=== PATIENT | female | born 1975 | race Caucasian/White ===

== ENCOUNTER 2016-11-23 15:00 | Emergency (ER) | payer MEDICAID, OTHER ==
--- NOTE | 2016-11-23 15:27 | ER Document Report ---
ED Medical Screen (RME) - General Chief Complaint: Toothache Stated Complaint: POSSIBLE TOOTH ABSCESS Mode of Arrival: Ambulatory Information source: Patient Notes: Patient presents with facial swelling swelling under her chin started on Thursday. Reports dental pain. Does not open her mouth all the way. Reports throat sore with swallowing. Only able to drink broth for dinner. I have greeted and performed a rapid initial assessment of this patient. A comprehensive ED assessment and evaluation of the patient, analysis of test results and completion of the medical decision making process will be conducted by additional ED providers. TRAVEL OUTSIDE OF THE [place] IN LAST 30 DAYS: No - Related Data Allergies/Adverse Reactions: methyldopa [From Aldomet] Allergy (Mild, Verified 11/23/16 15:23) egg [Egg] Allergy (Verified 11/23/16 15:23) tramadol HCl [From Ultram] Allergy (Verified 11/23/16 15:23) Past Medical History - Social History Chew tobacco use (# tins/day): No Frequency of alcohol use: None Drug Abuse: None - Past Medical History Cardiac Medical History: Reports: Hx Hypertension - not on medication Endocrine Medical History: Reports: Hx Diabetes Mellitus Type 2 Renal/ Medical History: Denies: Hx Peritoneal Dialysis Psychiatric Medical History: Reports: Hx Depression - intermittent Past Surgical History: Reports: Hx Section, Hx Cholecystectomy - Immunizations Hx Diphtheria, Pertussis, Tetanus Vaccination: Yes Physical Exam - Vital signs Vitals: Temp Pulse Resp BP Pulse Ox 98.1 F 94 20 154/98 H 99 11/23/16 15:17 11/23/16 15:17 11/23/16 15:17 11/23/16 15:17 11/23/16 15:17 Course - Vital Signs Vital signs: Temp Pulse Resp BP Pulse Ox 98.1 F 94 20 154/98 H 99 11/23/16 15:17 11/23/16 15:17 11/23/16 15:17 11/23/16 15:17 11/23/16 15:17
[2016-11-23 15:58] LABS: ABSOLUTE BASOPHILS # (AUTO) 0.1 10^3/uL (0.0-0.2); ABSOLUTE EOSINOPHILS # (AUTO) 0.1 10^3/uL (0.0-0.6); ABSOLUTE LYMPHOCYTES (AUTO) 2.1 10^3/uL (0.5-4.7); ABSOLUTE MONOCYTES (AUTO) 0.5 10^3/uL (0.1-1.4); ABSOLUTE NEUT (AUTO) 5.8 10^3/uL (1.7-8.2); BASOPHILS % (AUTO) 0.8 % (0-2); EOSINOPHILS % (AUTO) 1.7 % (0-6); HEMATOCRIT 43.5 % (36.0-47.0); HEMOGLOBIN 15.3 g/dL (12.0-15.5); HGB HCT DIFFERENCE 2.4; LYMPHOCYTES % (AUTO) 23.9 % (13-45); MEAN CORPUSCULAR HEMOGLOBIN 31.8 pg (27.0-33.4); MEAN CORPUSCULAR HGB CONC 35.1 g/dL (32.0-36.0); MEAN CORPUSCULAR VOLUME 91 fl (80-97); MONOCYTES % (AUTO) 6.1 % (3-13); RED CELL DISTRIBUTION WIDTH 14.1 % (11.5-14.0); SEGMENTED NEUTROPHILS % (AUTO) 67.5 % (42-78); WHITE BLOOD COUNT 8.6 10^3/uL (4.0-10.5)
[2016-11-23 16:21] LABS: ALANINE AMINOTRANSFERASE 28 U/L (9-52); ALBUMIN 3.8 g/dL (3.5-5.0); ALKALINE PHOSPHATASE 56 U/L (38-126); ANION GAP 12 (5-19); ASPARTATE AMINO TRANSFERASE 19 U/L (14-36); BILIRUBIN,DIRECT 0.4 mg/dL (0.0-0.4); BILIRUBIN,TOTAL 0.6 mg/dL (0.2-1.3); BLOOD UREA NITROGEN 9 mg/dL (7-20); CALCIUM 9.7 mg/dL (8.4-10.2); CARBON DIOXIDE 27 mmol/L (22-30); CHLORIDE 106 mmol/L (98-107); CREATININE RESULT 0.67 mg/dL (0.52-1.25); GLUCOSE 91 mg/dL (75-110); POTASSIUM 3.6 mmol/L (3.6-5.0); SODIUM 144.6 mmol/L (137-145); TOTAL PROTEIN 7.2 g/dL (6.3-8.2)
[2016-11-23] MEDS ORDERED: CLINDAMYCIN 600 MG/D5W RTU 50 ML IV ONE (17:21)
[2016-11-23] MEDS ORDERED: MORPHINE SULFATE 10 MG/ML INJ IV ONE (17:21)
[2016-11-23] MEDS ORDERED: DEXAMETHASONE SOD PHOS INJ 10 MG/1 ML VIAL IV ONE (17:21)
--- NOTE | 2016-11-23 17:52 | ER Document Report ---
ED Oral Problem - General Mode of Arrival: Ambulatory Information source: Patient TRAVEL OUTSIDE OF THE [place] IN LAST 30 DAYS: No - HPI Patient complains to provider of: Jaw pain, Swelling of jaw, Toothache Onset: Other - Pain for 3 days, swelling started today Quality of pain: Achy Pain Level: 5 Context: denies: Recent antibiotic use Associated symptoms: Jaw pain. denies: Chills, Fever, Tongue swelling, Unable to swallow Relieved by: Nothing Similar symptoms previously: No <IRWIN MORRIS - Last Filed: 11/23/16 19:27> <RUFINO LARSON - Last Filed: 11/23/16 22:32> <ESTELLA REZA - Last Filed: 11/24/16 00:14> - General Chief Complaint: Toothache Stated Complaint: POSSIBLE TOOTH ABSCESS Notes: Patient reports a three-day history of right lower jaw dental pain. Patient denies any fever. Patient states that she noticed swelling that started today and complains of a tight feeling to the right lower jaw area. (IRWIN MORRIS) - Related Data Allergies/Adverse Reactions: methyldopa [From Aldomet] Allergy (Mild, Verified 11/23/16 15:23) egg [Egg] Allergy (Verified 11/23/16 15:23) tramadol HCl [From Ultram] Allergy (Verified 11/23/16 15:23) Past Medical History - General Information source: Patient - Social History Smoking Status: Current Every Day Smoker Chew tobacco use (# tins/day): No Frequency of alcohol use: None Drug Abuse: None Occupation: none Lives with: Family Family History: Reviewed & Not Pertinent, Other - MOTHER - RA Patient has suicidal ideation: No Patient has homicidal ideation: No - Past Medical History Cardiac Medical History: Reports: Hx Hypertension Endocrine Medical History: Reports: Hx Diabetes Mellitus Type 2 Renal/ Medical History: Denies: Hx Peritoneal Dialysis Musculoskeltal Medical History: Reports Hx Arthritis - Rheumatoid arthritis Psychiatric Medical History: Reports: Hx Depression - intermittent Past Surgical History: Reports: Hx Section, Hx Cholecystectomy - Immunizations Hx Diphtheria, Pertussis, Tetanus Vaccination: Yes <IRWIN MORRIS - Last Filed: 11/23/16 19:27> Review of Systems - Review of Systems Constitutional: No symptoms reported. denies: Fever EENT: Other - Dental pain Cardiovascular: No symptoms reported. denies: Chest pain Respiratory: No symptoms reported. denies: Cough, Short of breath Gastrointestinal: No symptoms reported. denies: Nausea, Vomiting Genitourinary: No symptoms reported Female Genitourinary: No symptoms reported Musculoskeletal: No symptoms reported. denies: Back pain, Neck pain Skin: No symptoms reported Hematologic/Lymphatic: No symptoms reported Neurological/Psychological: No symptoms reported <IRWIN MORRIS - Last Filed: 11/23/16 19:27> Physical Exam - General General appearance: Appears well, Alert In distress: Mild - HEENT Head: Normocephalic Eyes: Normal Conjunctiva: Normal Nasal: Normal Mouth/Lips: Other - Patient with swelling to right lower jaw area under the mandible, swelling noted to right lateral aspect of lower lip, no sublingual or submental swelling. Lower lip swelling concerning for angioedema Mucous membranes: Normal Teeth diagram: 1 - Tenderness, decay Pharynx: Normal Neck: Lymphadenopathy - Right anterior cervical chain - Respiratory Respiratory status: No respiratory distress Chest status: Nontender Breath sounds: Normal. No: Rales, Rhonchi, Stridor, Wheezing Chest palpation: Normal - Cardiovascular Rhythm: Regular Heart sounds: S1 appreciated, S2 appreciated Murmur: No - Back Back: Normal, Nontender - Extremities General upper extremity: Normal inspection, Normal strength General lower extremity: Normal inspection, Normal strength - Neurological Neuro grossly intact: Yes Cognition: Normal Sharee Coma Scale Eye Opening: Spontaneous Sharee Coma Scale Verbal: Oriented Sharee Coma Scale Motor: Obeys Commands [place] Coma Scale Total: 15 - Psychological Associated symptoms: Normal affect, Normal mood - Skin Skin Temperature: Warm Skin Moisture: Dry Skin Color: Normal <IRWIN MORRIS - Last Filed: 11/23/16 19:27> <RUFINO LARSON - Last Filed: 11/23/16 22:32> <ESTELLA REZA - Last Filed: 11/24/16 00:14> - Vital signs Vitals: Temp Pulse Resp BP Pulse Ox 98.1 F 94 20 154/98 H 99 11/23/16 15:17 11/23/16 15:17 11/23/16 15:17 11/23/16 15:17 11/23/16 15:17 - HEENT Notes: Swelling to right lateral aspect of neck, tissue soft to touch, no concern for Doni angina at this time (IRWIN MORRIS) Course - Laboratory Result Diagrams: 11/23/16 15:40 11/23/16 15:40 <IRWIN MORRIS - Last Filed: 11/23/16 19:27> - Laboratory Result Diagrams: 11/23/16 15:40 11/23/16 15:40 - Diagnostic Test Radiology reviewed: Image reviewed, Reports reviewed - EKG Interpretation by Co EKG shows normal: Sinus rhythm, [place], Intervals, QRS Complexes, ST-T Waves Rate: Normal Rhythm: NSR When compared to previous EKG there are: No significant change <RUFINO LARSON - Last Filed: 11/23/16 22:32> - Laboratory Result Diagrams: 11/23/16 15:40 11/23/16 15:40 <ESTELLA REZA - Last Filed: 11/24/16 00:14> - Re-evaluation Re-evalutation: 11/23/16 17:[address] Reza regarding patient presentation agrees with plan of care thus far. 11/23/16 18:54 Dr. Reza to bedside for examination. Recommends observing patient for several hours, recommends treating her with clindamycin agrees with plan to give Benadryl as well as IV Pepcid and to have patient stop taking her lisinopril. Recommends having patient follow up with her primary doctor tomorrow to address her blood pressure medication 11/23/16 19:08 Patient advised that her swelling to her lower lip is concerning for angioedema and that she should not take her usual blood pressure any more. Patient should speak with her primary doctor tomorrow to discuss her blood pressure management as it is possible she is having an allergic reaction to her blood pressure medication. Patient also advised that we'll need to observe her for several hours to make sure she doesn't have any worsening swelling to the lip or lower neck area. Patient is agreeable with this plan of care this time. 11/23/16 19:27 Bedside report and handoff given to Rufino Larson [employer], patient states that 5 minutes ago she had a episode of some chest discomfort and some shortness of breath that resolved after she sat back up. Patient is uncertain if this may be due to the medication she is receiving or just that she is not feeling really well. Additional labs will be ordered. (IRWIN MORRIS) 11/23/16 21:44 Patient hemodynamically stable, in no distress, afebrile. Right lower jaw swelling improved during stay in the emergency department. No trismus and patient tolerating oral fluids without difficulty or vomiting. Patient received intravenous dose of dexamethasone and clindamycin. Patient was instructed to stop use of lisinopril until she follows up with her primary care provider. Patient appears stable for discharge and agrees with home care, follow-up with PCP and oral surgery, and strict ED return precautions. Findings and plan discussed with ED physician Dr. Reza who concurs with plan. (RUFINO LARSON) 11/24/16 00:13 I've seen and examined patient. On exam, the patient does have some swelling of the right side of the lip. Is no swelling of the tongue and there is no swelling of the floor the mouth. She does have a loose tooth on the right lower side which is tender. It's unclear whether the swelling in the tongue is related to the dental caries. She certainly has tenderness under the submental area. The rest of her neck is supple and the rest of the submandibular area is supple. I don't see any evidence of Doni exam Jay at this time. Patient was given IV clindamycin, IV Decadron and she's been tolerating fluids. She does have plans of following up with a dentist tomorrow. Additionally, we've asked her to stop the lisinopril giving the swelling of the lip. She could follow-up with her primary care doctor for different type of antihypertensive. ( ESTELLA REZA) - Vital Signs Vital signs: Temp Pulse Resp BP Pulse Ox 97.9 F 82 18 148/86 H 100 11/23/16 21:58 11/23/16 21:58 11/23/16 21:58 11/23/16 21:58 11/23/16 21:58 - Laboratory Laboratory results interpreted by me: 11/23/16 15:40 RDW 14.1 H Plt Count 127 L Discharge <IRWIN MORRIS - Last Filed: 11/23/16 19:27> <RUFINO LARSON - Last Filed: 11/23/16 22:32> <ESTELLA REZA - Last Filed: 11/24/16 00:14> - Discharge Clinical Impression: Dental infection Condition: Stable Disposition: HOME, SELF-CARE Instructions: Clindamycin ([facility]), Dental Infection or Abscess ([facility]), Angioedema ([facility]) Additional Instructions: FOLLOW-UP CARE: Stop taking your Lisinopril until you follow-up with your primary care provider tomorrow to discuss your anti-hypertensive regimen including Lisinopril. If you experience worsening or a significant change in your symptoms, notify the physician immediately or return to the Emergency Department at any time for re-evaluation. [facility] [address] [place], [place] Thursday mornings, by appointment [facility] [address] [place] [address] [facility] [place] [address] [facility] [address] [facility] ([facility]) [facility] [address] [email or web address] [address] [place] [address] Thursday- 8:00am to 5:00 pm Will see patients from other [facility]. Charges based on income and family size and accepts Medicare, Medicaid, and Insurances Will pull molars [facility] [id number] Hours of Operation 8:00 am - 4:30 pm weekdays The following dental offices accept Medicaid: [facility] Dr. Cowart Dr. Dee Dr. Craft Dr. Gomes Shamar Antonio Lutsavage, and Kevin oral surgery Dr. Rolle ([place]) Dr. Longoria ([place]) [facility] Drs. Harris and Zaid ([place]) Dr. Burnett ([place]) [facility] Dr. Powers ([place]) Drs. Pulido and (H. Rivera Colon) Medicaid Care Line Prescriptions: Clindamycin HCl 300 mg PO Q6H #28 capsule Hydrocodone/Acetaminophen [[place] 5-325 mg Tablet] 1 tab PO Q6H PRN #10 tablet PRN Reason: Naproxen 500 mg PO BIDP PRN #10 tablet PRN Reason: Forms: Elevated Blood Pressure Referrals: EAMON JOSEPH DDS [ACTIVE STAFF] - Follow up tomorrow [facility] [NO LOCAL MD] - Follow up tomorrow
[2016-11-23] MEDS ORDERED: FAMOTIDINE INJ/PF 20 MG/2 ML SDV IV ONE (18:53)
[2016-11-23] MEDS ORDERED: DIPHENHYDRAMINE HCL 50 MG/ML VIAL IV ONE (18:53)
[2016-11-23 19:31] LABS: ADD ON TESTING BLD IN LAB ACKNOWLEDGE
[2016-11-23 20:05] LABS: CREATINE KINASE 45 U/L (30-135)
[2016-11-23 20:19] LABS: CREATINE KINASE MB < 0.22 ng/mL (<4.55); TROPONIN I < 0.012 ng/mL
--- NOTE | 2016-11-23 21:23 | EKG REPORT ---
SEVERITY:- BORDERLINE ECG - SINUS RHYTHM LOW VOLTAGE IN FRONTAL LEADS BORDERLINE T ABNORMALITIES, ANTERIOR LEADS : Confirmed by: Dae Arambula MD 23-Nov-2016 21:22:41
[2016-11-23 22:00] VITALS: BP 148/86
== END 2016-11-23 21:58 | disposition home or self-care (01) ==
LOC: ER 15:00
DX: K04.7 Periapical abscess without sinus (principal); K02.9 Dental caries, unspecified; K08.89 Other specified disorders of teeth and supporting structures; R59.0 Localized enlarged lymph nodes; R22.0 Localized swelling, mass and lump, head; R09.89 Other specified symptoms and signs involving the circulatory and respiratory systems; R06.02 Shortness of breath; I10 Essential (primary) hypertension; E11.9 Type 2 diabetes mellitus without complications; F17.200 Nicotine dependence, unspecified, uncomplicated; Z88.8 Allergy status to other drugs, medicaments and biological substances; Z88.5 Allergy status to narcotic agent; Z91.012 Allergy to eggs; Z79.899 Other long term (current) drug therapy
CPT/HCPCS: 93005; 99284; 96375; 96365; 36415; 87040; 82553; 82550; 84703; 85025; 80053; 84484; 71020; 70491; 93010; J1200; J2270; S0028; J1100

== ENCOUNTER 2016-12-15 14:24 | Emergency (ER) | payer SELFPAY ==
--- NOTE | 2016-12-15 15:45 | ER Document Report ---
ED Medical Screen (RME) - General Stated Complaint: ABDOMINAL PAIN,NAUSEA,VOMITING Notes: This 41-year-old female patient of them are from a 10 day history of abdominal pain. Her last bowel movement was one week ago. She has had some leakage of stool but no good bowel movement. She has not taken her blood pressure medication due to nausea. I have greeted and performed a rapid initial assessment of this patient. A comprehensive ED assessment and evaluation of the patient, analysis of test results and completion of the medical decision making process will be conducted by additional ED providers. TRAVEL OUTSIDE OF THE [place] IN LAST 30 DAYS: No - Related Data Allergies/Adverse Reactions: methyldopa [From Aldomet] Allergy (Mild, Verified 11/23/16 15:23) egg [Egg] Allergy (Verified 11/23/16 15:23) tramadol HCl [From Ultram] Allergy (Verified 11/23/16 15:23) Past Medical History - Past Medical History Cardiac Medical History: Reports: Hx Hypertension Endocrine Medical History: Reports: Hx Diabetes Mellitus Type 2 Renal/ Medical History: Denies: Hx Peritoneal Dialysis Musculoskeltal Medical History: Reports Hx Arthritis - Rheumatoid arthritis Psychiatric Medical History: Reports: Hx Depression - intermittent Past Surgical History: Reports: Hx Section, Hx Cholecystectomy - Immunizations Hx Diphtheria, Pertussis, Tetanus Vaccination: Yes Physical Exam - Vital signs Vitals: Temp Pulse Resp BP Pulse Ox 98.8 F 108 H 20 128/75 H 97 12/15/16 15:06 12/15/16 15:06 12/15/16 15:06 12/15/16 15:06 12/15/16 15:06 Course - Vital Signs Vital signs: Temp Pulse Resp BP Pulse Ox 98.8 F 108 H 20 128/75 H 97 12/15/16 15:06 12/15/16 15:06 12/15/16 15:06 12/15/16 15:06 12/15/16 15:06
[2016-12-15 16:36] LABS: ABSOLUTE BASOPHILS # (AUTO) 0.1 10^3/uL (0.0-0.2); ABSOLUTE EOSINOPHILS # (AUTO) 0.1 10^3/uL (0.0-0.6); ABSOLUTE LYMPHOCYTES (AUTO) 1.6 10^3/uL (0.5-4.7); ABSOLUTE MONOCYTES (AUTO) 1.1 10^3/uL (0.1-1.4); ABSOLUTE NEUT (AUTO) 11.7 10^3/uL (1.7-8.2); BASOPHILS % (AUTO) 0.4 % (0-2); EOSINOPHILS % (AUTO) 0.7 % (0-6); HEMATOCRIT 45.6 % (36.0-47.0); HEMOGLOBIN 15.9 g/dL (12.0-15.5); HGB HCT DIFFERENCE 2.1; LYMPHOCYTES % (AUTO) 11.2 % (13-45); MEAN CORPUSCULAR HEMOGLOBIN 31.5 pg (27.0-33.4); MEAN CORPUSCULAR HGB CONC 34.9 g/dL (32.0-36.0); MEAN CORPUSCULAR VOLUME 90 fl (80-97); MONOCYTES % (AUTO) 7.7 % (3-13); RED BLOOD COUNT 5.05 10^6/uL (3.72-5.28); RED CELL DISTRIBUTION WIDTH 14.6 % (11.5-14.0); WHITE BLOOD COUNT 14.6 10^3/uL (4.0-10.5)
[2016-12-15 16:52] LABS: APPEARANCE,URINE CLEAR; BILIRUBIN,URINE NEGATIVE (NEGATIVE); GLUCOSE, URINE NEGATIVE (NEGATIVE); KETONES,URINE TRACE mg/dL (NEGATIVE); LEUKOCYTE ESTERASE,URINE NEGATIVE (NEGATIVE); NITRITE,URINE NEGATIVE (NEGATIVE); PROTEIN,URINE NEGATIVE (NEGATIVE); URINE SPECIFIC GRAVITY 1.017; UROBILINOGEN,URINE NEGATIVE mg/dL (<2.0)
[2016-12-15 16:59] LABS: ALANINE AMINOTRANSFERASE 26 U/L (9-52); ALBUMIN 3.6 g/dL (3.5-5.0); ALKALINE PHOSPHATASE 68 U/L (38-126); ANION GAP 15 (5-19); ASPARTATE AMINO TRANSFERASE 14 U/L (14-36); BILIRUBIN,DIRECT 0.2 mg/dL (0.0-0.4); BILIRUBIN,TOTAL 0.7 mg/dL (0.2-1.3); BLOOD UREA NITROGEN 7 mg/dL (7-20); CALCIUM 8.9 mg/dL (8.4-10.2); CARBON DIOXIDE 22 mmol/L (22-30); CHLORIDE 102 mmol/L (98-107); CREATININE RESULT 0.73 mg/dL (0.52-1.25); GLUCOSE 97 mg/dL (75-110); POTASSIUM 3.4 mmol/L (3.6-5.0); TOTAL PROTEIN 6.8 g/dL (6.3-8.2)
[2016-12-15] MEDS ORDERED: NORMAL SALINE 1000 ML 1,000 ML IV ONE (19:13)
[2016-12-15] MEDS ORDERED: MORPHINE SULFATE 10 MG/ML INJ IV ONE (19:13)
[2016-12-15] MEDS ORDERED: ONDANSETRON HCL INJ/PF 4 MG/2 ML SDV IV ONE (19:14)
--- NOTE | 2016-12-15 19:15 | ER Document Report ---
ED GI/ - General Chief Complaint: Abdominal Pain Stated Complaint: ABDOMINAL PAIN,NAUSEA,VOMITING Notes: The patient is a 41-year-old female, past medical history , cholecystectomy, presents with 10 days of worsening abdominal pain, worsening today. In addition, she is feeling nauseous. She has not had a full bowel movement for the past week. She has a small amount of stool when she strains. She denies urinary symptoms, flank pain, fevers, chest pain, shortness of breath , back pain, vaginal discharge or headache. TRAVEL OUTSIDE OF THE [place] IN LAST 30 DAYS: No - Related Data Allergies/Adverse Reactions: methyldopa [From Aldomet] Allergy (Mild, Verified 11/23/16 15:23) egg [Egg] Allergy (Verified 11/23/16 15:23) tramadol HCl [From Ultram] Allergy (Verified 11/23/16 15:23) Past Medical History - General Information source: Patient - Social History Smoking Status: Unknown if Ever Smoked Family History: Reviewed & Not Pertinent, Other - MOTHER - RA Patient has suicidal ideation: No Patient has homicidal ideation: No - Past Medical History Cardiac Medical History: Reports: Hx Hypertension Endocrine Medical History: Reports: Hx Diabetes Mellitus Type 2 Renal/ Medical History: Denies: Hx Peritoneal Dialysis Musculoskeltal Medical History: Reports Hx Arthritis - Rheumatoid arthritis Psychiatric Medical History: Reports: Hx Depression - intermittent Past Surgical History: Reports: Hx Section, Hx Cholecystectomy - Immunizations Hx Diphtheria, Pertussis, Tetanus Vaccination: Yes Review of Systems - Review of Systems Notes: REVIEW OF SYSTEMS: CONSTITUTIONAL: -fevers, -chills EENT: -eye pain, -difficulty swallowing, -nasal congestion CARDIOVASCULAR:-chest pain, -syncope. RESPIRATORY: -cough, -SOB GASTROINTESTINAL: +abdominal pain, +nausea, -vomiting, -diarrhea, +constipation GENITOURINARY: -dysuria, -hematuria MUSCULOSKELETAL: -back pain, -neck pain SKIN: -rash or skin lesions. HEMATOLOGIC: -easy bruising or bleeding. LYMPHATIC: -swollen, enlarged glands. NEUROLOGICAL: -altered mental status or loss of consciousness, -headache, - neurologic symptoms PSYCHIATRIC: -anxiety, -depression. ALL OTHER SYSTEMS REVIEWED AND NEGATIVE. Physical Exam - Vital signs Vitals: Temp Pulse Resp BP Pulse Ox 98.8 F 108 H 20 128/75 H 97 12/15/16 15:06 12/15/16 15:06 12/15/16 15:06 12/15/16 15:06 12/15/16 15:06 - Notes Notes: PHYSICAL EXAMINATION: GENERAL: Well-appearing, well-nourished and in mild acute distress. HEAD: Atraumatic, normocephalic. EYES: Pupils equal round and reactive to light, extraocular movements intact, sclera anicteric, conjunctiva are normal. ENT: nares patent, oropharynx clear without exudates. Moist mucous membranes. NECK: Normal range of motion, supple without lymphadenopathy LUNGS: Breath sounds clear to auscultation bilaterally and equal. No wheezes rales or rhonchi. HEART: Tachycardia ABDOMEN: Moderate tenderness diffusely, high-pitched bowel sounds EXTREMITIES: Normal range of motion, no pitting or edema. No cyanosis. NEUROLOGICAL: Cranial nerves grossly intact. Normal speech, normal gait. Normal sensory, motor, and reflex exams. PSYCH: Normal mood, normal affect. SKIN: Warm, Dry, normal turgor, no rashes or lesions noted. Course - Re-evaluation Re-evalutation: Concern for bowel obstruction from obstruction series ordered in triage. CT abdomen and pelvis shows colitis or inflammatory bowel disease. Patient is feeling much better and is no longer nauseous. Will treat for colitis with Cipro and Flagyl due to leukocytosis and have her follow-up with the GI doctor for further evaluation and treatment. Given strict return precautions and she understands. - Vital Signs Vital signs: Temp Pulse Resp BP Pulse Ox 98.8 F 108 H 20 128/75 H 97 12/15/16 15:06 12/15/16 15:06 12/15/16 15:06 12/15/16 15:06 12/15/16 15:06 - Laboratory Result Diagrams: 12/15/16 16:05 12/15/16 16:05 Laboratory results interpreted by me: 12/15/16 12/15/16 12/15/16 16:05 16:05 16:05 WBC 14.6 H Hgb 15.9 H RDW 14.6 H Seg Neutrophils % 80.0 H Lymphocytes % 11.2 L Absolute Neutrophils 11.7 H Potassium 3.4 L Urine Ketones TRACE H - Diagnostic Test Radiology reviewed: Image reviewed, Reports reviewed Radiology results interpreted by me: KUB: possible obstruction CT A/P: Discharge - Discharge Clinical Impression: Colitis Condition: Stable Disposition: HOME, SELF-CARE Additional Instructions: Your CAT scan shows evidence of a colon infection or inflammatory bowel disease. Take the full course antibiotics as prescribed. You must follow-up with the GI doctor for further evaluation and treatment. ABDOMINAL PAIN: There are many causes of abdominal pain. Pain can mean a serious problem requiring surgery (such as appendicitis). It can also be an innocent problem that goes away on its own (such as a viral infection). Often, time must pass to determine the cause of pain. The physician does not feel that hospitalization is necessary, at present. Things may change within the next 24 hours. Call the doctor or come back for re- examination if any problems occur, such as: (1) Pain that becomes more severe, steady, or becomes concentrated in one specific area. Also, pain that is more severe with movement or coughing. (2) Vomiting that persists or becomes more frequent. (3) Blood in the vomitus, urine, or bowel movements. Blood in the stool may have a tarry or black appearance. (4) Shaking chills or fever greater than 100 degrees F. (5) The abdomen becomes more distended or swollen. (6) Bowel movements cease. (7) Failure to improve as expected. COLITIS, NONSPECIFIC: Colitis is an inflammatory disease of the large intestine which affects the lining of the bowel. The cause is uncertain, though it is often caused by an infection. In some cases, the symptoms resolve and can return again in the future. Colitis is characterized by abdominal pain, often nausea and vomiting, and either diarrhea or difficulty with bowel movements. Sometimes blood will be present in the bowel movements. Fever is often present as well. Milder cases of colitis can be managed as an outpatient with medications for nausea and vomiting and pain, oral fluid therapy, and perhaps antibiotics, if a bacterial origin is suspected. Antidiarrhea medicine should usually be avoided in colitis. If you have increasing abdominal pain, repeated vomiting, fever, rectal bleeding, or worsening diarrhea, you should return for re-evaluation. PAIN MEDICATION INJECTION: You have received an injection of a pain medication. You should experience significant pain relief within 45 minutes. This drug is a narcotic - - it will impair your judgement, slow your reaction time and make you sleepy ( as well as relieve your pain). Narcotics also can cause nausea. You should not drive, work with machinery, or perform any task requiring mental alertness until all effects of the medication are gone -- six to eight hours. Do not take any alcohol, or sedatives, and do not take any other medication without checking with your physician. ANTINAUSEA MEDICATION: You have been given a medication to suppress nausea and vomiting. This type of medication can be given as a shot, pill, or suppository. It will usually last for many hours. Pills and shots usually last six to eight hours, suppositories last about 12 hours. For the typical illness, only one or two doses of the medication may be necessary. Mild lightheadedness may occur. This type of medicine can cause drowsiness. Do not drive or operate dangerous machinery while under its influence. Do not mix with alcohol. See your doctor at once if you have muscle spasms or tightness, or uncontrollable motions (particularly of the neck, mouth, or jaw). Persistent vomiting or severe lightheadedness should also be evaluated by the physician. ANTIBIOTIC THERAPY: You have been given an antibiotic prescription. It's important that you take all the medication, unless instructed otherwise by your physician. Failure to complete the entire course can result in relapse of your condition. Common side effects of antibiotics include nausea, intestinal cramping, or diarrhea. Women may develop vaginal yeast infections, and babies can get yeast (thrush) in the mouth following the use of antibiotics. Contact your physician if you develop significant side effects from this medication. Allergy to this antibiotic can result in hives, wheezing, faintness, or itching. If symptoms of allergy occur, stop the medication and call the doctor. CIPROFLOXACIN: You have been given an antibacterial agent, ciprofloxacin (Cipro). This medicine is not related to the penicillins, sulfas, cephalosporins, or tetracyclines. It is often given to patients who are allergic to these drugs. It has been chosen for you either because other drugs are not appropriate, or because of the nature of your problem. Cipro should not be taken with antacids, as these can decrease its effectiveness. It can be taken without regard to meals. CIPRO SHOULD NOT BE TAKEN BY CHILDREN, NURSING WOMEN, OR WOMEN. Although Cipro is usually well-tolerated, common side effects can include nausea and diarrhea. Contact your doctor if you experience any unusual symptoms while on this medication, such as joint pain or swelling, shortness of breath, wheezing, faintness, or hives. METRONIDAZOLE: Metronidazole (Flagyl) has been prescribed. This medication is used to kill a type of bacteria called anaerobes, and protozoan parasites such as trichomonas and Giardia. Flagyl often causes a metallic taste in the mouth and mild nausea. Do not use alcohol in any form with Flagyl (including alcohol in medication elixirs). Flagyl interacts with alcohol to cause flushing, palpitations, headache, stomach cramps, and vomiting. Do not use Flagyl if you are taking Antabuse (disulfiram). Call the doctor at once if you develop rash, shortness of breath, itching, or lightheadedness. FOLLOW-UP CARE: If you have been referred to a physician for follow-up care, call the physician s office for an appointment as you were instructed or within the next two days. If you experience worsening or a significant change in your symptoms, notify the physician immediately or return to the Emergency Department at any time for re-evaluation. Prescriptions: Ciprofloxacin HCl [Cipro 500 mg Tablet] 500 mg PO BID #20 tablet Metronidazole [Flagyl 500 mg Tablet] 500 mg PO Q8H #21 tablet Referrals: PRICILLA TOMPKINS MD [ACTIVE STAFF] - Follow up as needed
[2016-12-15] MEDS ORDERED: METRONIDAZOLE 500 MG TABLET PO ONE (21:04)
[2016-12-15] MEDS ORDERED: CIPROFLOXACIN HCL 500 MG TABLET PO ONE (21:04)
[2016-12-16 02:42] VITALS: BP 112/62
== END 2016-12-15 22:00 | disposition home or self-care (01) ==
LOC: ER 14:24
DX: K52.9 Noninfective gastroenteritis and colitis, unspecified (principal); R11.0 Nausea; R00.0 Tachycardia, unspecified; K59.00 Constipation, unspecified; I10 Essential (primary) hypertension; E11.9 Type 2 diabetes mellitus without complications; Z90.49 Acquired absence of other specified parts of digestive tract; Z91.012 Allergy to eggs
CPT/HCPCS: 99284; 96374; 96375; 36415; 85025; 80053; 81001; 74022; 74177; J2270; J2405; J7030

== ENCOUNTER 2017-01-05 17:28 | Inpatient (IN) | payer MEDICAID, OTHER ==
--- NOTE | 2017-01-05 18:13 | ER Document Report ---
ED Medical Screen (RME) - General Chief Complaint: Abdominal Pain Stated Complaint: POSSIBLE BOWEL OBSTRUCTION Time Seen by Provider: 01/05/17 18:12 TRAVEL OUTSIDE OF THE [place] IN LAST 30 DAYS: No - HPI Notes: 01/05/17 18:13 Abdominal pain nausea vomiting. Patient was recently seen diagnosed with colitis versus inflammatory bowel was discharged home on antibiotics felt better stop antibiotics pain returned and she restart her antibiotics 2 days ago. - Related Data Allergies/Adverse Reactions: methyldopa [From Aldomet] Allergy (Mild, Verified 01/05/17 17:46) egg [Egg] Allergy (Verified 01/05/17 17:46) tramadol HCl [From Ultram] Allergy (Verified 01/05/17 17:46) Past Medical History - Past Medical History Cardiac Medical History: Reports: Hx Hypertension Endocrine Medical History: Reports: Hx Diabetes Mellitus Type 2 Renal/ Medical History: Denies: Hx Peritoneal Dialysis Musculoskeltal Medical History: Reports Hx Arthritis - Rheumatoid arthritis Psychiatric Medical History: Reports: Hx Depression - intermittent Past Surgical History: Reports: Hx Section, Hx Cholecystectomy - Immunizations Hx Diphtheria, Pertussis, Tetanus Vaccination: Yes Review of Systems - Review of Systems Gastrointestinal: Abdominal pain Physical Exam - Vital signs Vitals: Temp Pulse Resp BP Pulse Ox 99.1 F 114 H 22 H 134/85 H 96 01/05/17 17:48 01/05/17 17:48 01/05/17 17:48 01/05/17 17:48 01/05/17 17:48 - Respiratory Respiratory status: No respiratory distress Chest status: Nontender Breath sounds: Normal Chest palpation: Normal Course - Re-evaluation Re-evalutation: 01/05/17 18:13 I have greeted and performed a rapid initial assessment of this patient. A comprehensive ED assessment and evaluation of the patient, analysis of test results and completion of the medical decision making process will be conducted by additional ED providers. - Vital Signs Vital signs: Temp Pulse Resp BP Pulse Ox 99.1 F 114 H 22 H 134/85 H 96 01/05/17 17:48 01/05/17 17:48 01/05/17 17:48 01/05/17 17:48 01/05/17 17:48
[2017-01-05 18:36] LABS: ABSOLUTE BASOPHILS # (AUTO) 0.1 10^3/uL (0.0-0.2); ABSOLUTE EOSINOPHILS # (AUTO) 0.1 10^3/uL (0.0-0.6); ABSOLUTE LYMPHOCYTES (AUTO) 0.9 10^3/uL (0.5-4.7); ABSOLUTE MONOCYTES (AUTO) 0.8 10^3/uL (0.1-1.4); BASOPHILS % (AUTO) 0.5 % (0-2); EOSINOPHILS % (AUTO) 0.8 % (0-6); HEMATOCRIT 42.4 % (36.0-47.0); HEMOGLOBIN 14.6 g/dL (12.0-15.5); HGB HCT DIFFERENCE 1.4; LYMPHOCYTES % (AUTO) 8.2 % (13-45); MEAN CORPUSCULAR HEMOGLOBIN 31.1 pg (27.0-33.4); MEAN CORPUSCULAR HGB CONC 34.3 g/dL (32.0-36.0); MEAN CORPUSCULAR VOLUME 91 fl (80-97); MONOCYTES % (AUTO) 7.7 % (3-13); RED BLOOD COUNT 4.68 10^6/uL (3.72-5.28); RED CELL DISTRIBUTION WIDTH 14.3 % (11.5-14.0); SEGMENTED NEUTROPHILS % (AUTO) 82.8 % (42-78); WHITE BLOOD COUNT 10.9 10^3/uL (4.0-10.5)
[2017-01-05 18:55] LABS: ALANINE AMINOTRANSFERASE 14 U/L (9-52); ALBUMIN 3.3 g/dL (3.5-5.0); ALKALINE PHOSPHATASE 48 U/L (38-126); ANION GAP 9 (5-19); ASPARTATE AMINO TRANSFERASE 14 U/L (14-36); BILIRUBIN,DIRECT 0.5 mg/dL (0.0-0.4); BILIRUBIN,TOTAL 0.8 mg/dL (0.2-1.3); BLOOD UREA NITROGEN 11 mg/dL (7-20); CALCIUM 8.7 mg/dL (8.4-10.2); CARBON DIOXIDE 23 mmol/L (22-30); CHLORIDE 106 mmol/L (98-107); CREATININE RESULT 0.71 mg/dL (0.52-1.25); GLUCOSE 99 mg/dL (75-110); LIPASE 55.7 U/L (23-300); POTASSIUM 3.8 mmol/L (3.6-5.0); TOTAL PROTEIN 6.4 g/dL (6.3-8.2)
[2017-01-05 19:10] LABS: APPEARANCE,URINE CLEAR; BILIRUBIN,URINE NEGATIVE (NEGATIVE); GLUCOSE, URINE NEGATIVE (NEGATIVE); KETONES,URINE NEGATIVE (NEGATIVE); LEUKOCYTE ESTERASE,URINE NEGATIVE (NEGATIVE); NITRITE,URINE NEGATIVE (NEGATIVE); PROTEIN,URINE NEGATIVE (NEGATIVE); URINE SPECIFIC GRAVITY 1.006; UROBILINOGEN,URINE NEGATIVE mg/dL (<2.0)
[2017-01-05] MEDS ORDERED: MORPHINE SULFATE 10 MG/ML INJ IV PRN (19:18)
[2017-01-05] MEDS ORDERED: ONDANSETRON HCL INJ/PF 4 MG/2 ML SDV IV ONE (19:18)
[2017-01-05] MEDS ORDERED: NORMAL SALINE 1000 ML 1,000 ML IV ONE (19:21)
--- NOTE | 2017-01-05 19:21 | ER Document Report ---
ED General - General Chief Complaint: Abdominal Pain Stated Complaint: POSSIBLE BOWEL OBSTRUCTION Time Seen by Provider: 01/05/17 18:12 Notes: Patient is a 41-year-old female with a prior surgical history of cholecystectomy and , who presents with 4 days of progressively worsening diffuse abdominal pain with associated nausea, vomiting, and decreased stool output. She was seen 3 weeks ago for the same presentation at that time diagnosed with an acute colitis based on imaging and clinical history. States that her symptoms got that initially after taking antibiotics and she did self discontinue them prior to completion of the course. At this time she describes a diffuse, cramping, severe abdominal pain. Nothing improves or worsens the pain. She states she is currently oral intake secondary to pain and nausea. She has not seen a primary care doctor regarding today's concerns. She denies any chest pain or shortness of breath. No fever but states she feels chilled TRAVEL OUTSIDE OF THE [place] IN LAST 30 DAYS: No - Related Data Allergies/Adverse Reactions: methyldopa [From Aldomet] Allergy (Mild, Verified 01/05/17 17:46) egg [Egg] Allergy (Verified 01/05/17 17:46) tramadol HCl [From Ultram] Allergy (Verified 01/05/17 17:46) Past Medical History - General Information source: Patient - Social History Smoking Status: Never Smoker Frequency of alcohol use: None Drug Abuse: None Lives with: Spouse/Significant other Family History: Reviewed & Not Pertinent, Other - MOTHER - RA Patient has suicidal ideation: No Patient has homicidal ideation: No - Past Medical History Cardiac Medical History: Reports: Hx Hypertension Endocrine Medical History: Reports: Hx Diabetes Mellitus Type 2 Renal/ Medical History: Denies: Hx Peritoneal Dialysis Musculoskeltal Medical History: Reports Hx Arthritis - Rheumatoid arthritis Psychiatric Medical History: Reports: Hx Depression - intermittent Past Surgical History: Reports: Hx Section, Hx Cholecystectomy - Immunizations Hx Diphtheria, Pertussis, Tetanus Vaccination: Yes Review of Systems - Review of Systems Notes: Constitutional: Negative for fever. HENT: Negative for sore throat. Eyes: Negative for visual changes. Cardiovascular: Negative for chest pain. Respiratory: Negative for shortness of breath. Gastrointestinal: Positive for abdominal pain and vomiting Genitourinary: Negative for dysuria. Musculoskeletal: Negative for back pain. Skin: Negative for rash. Neurological: Negative for headaches, weakness or numbness. 10 point ROS negative except as marked above and in HPI. Physical Exam - Vital signs Vitals: Temp Pulse Resp BP Pulse Ox 99.1 F 114 H 22 H 134/85 H 96 01/05/17 17:48 01/05/17 17:48 01/05/17 17:48 01/05/17 17:48 01/05/17 17:48 Interpretation: Tachycardic, Tachypneic Notes: PHYSICAL EXAMINATION: GENERAL: Appears uncomfortable but in no acute distress HEAD: Atraumatic, normocephalic. EYES: Pupils equal round and reactive to light, extraocular movements intact, sclera anicteric, conjunctiva are normal. ENT: nares patent, oropharynx clear without exudates. Moderately dry mucous membranes. NECK: Normal range of motion, supple without lymphadenopathy LUNGS: Breath sounds clear to auscultation bilaterally and equal. No wheezes rales or rhonchi. HEART: Regular tachycardia without murmurs ABDOMEN: Soft, focal tenderness in the suprapubic and left lower quadrant with voluntary guarding. Otherwise has very mild diffuse abdominal tenderness. Bowel sounds are present. No rigidity. EXTREMITIES: Normal range of motion, no pitting or edema. No cyanosis. NEUROLOGICAL: No focal neurological deficits. Moves all extremities spontaneously and on command. PSYCH: Anxious. SKIN: Warm, Dry, normal turgor, no rashes or lesions noted. Course - Re-evaluation Re-evalutation: 01/05/17 19:20 Patient presents with focal left lower quadrant and suprapubic abdominal tenderness on exam although complains of diffuse abdominal tenderness by history. She does appear to be in some degree of significant discomfort. She is also noted to be tachycardic at time of arrival and is complaining of chills and rigors. She is a CT scan done proximal and one month ago for similar presentation and had an acute colitis at that time. States that her symptoms initially a better on oral antibiotics but now that they have recurred there worse than before. She is also complaining of inability to tolerate oral intake and decreased flatus and bowel movements concerning for possible associated ileus or bowel obstruction. Will proceed with IV fluids, pain control, CT scan of the abdomen and pelvis. 01/05/17 22:53 CT shows findings consistent with ongoing severe colitis vs inflammatory bowel disease. She continues to be mildly tachycardic and uncomfortable much improved with morphine. She is not tolerating some clear fluids. Given the ongoing nature of her symptoms, will appearance time of presentation, and the degree of inflammation on CT Will admit to the hospital on IV antibiotics. I discussed with Dr. Patrick who has agreed to admit the patient. - Vital Signs Vital signs: Temp Pulse Resp BP Pulse Ox 99.9 F 111 H 16 122/65 96 01/05/17 21:34 01/05/17 21:34 01/05/17 21:34 01/05/17 21:34 01/05/17 21:34 - Laboratory Result Diagrams: 01/05/17 18:15 01/05/17 18:15 Laboratory results interpreted by me: 01/05/17 01/05/17 18:15 18:15 WBC 10.9 H RDW 14.3 H Plt Count 126 L Seg Neutrophils % 82.8 H Lymphocytes % 8.2 L Absolute Neutrophils 9.0 H Direct Bilirubin 0.5 H Albumin 3.3 L - Diagnostic Test Radiology reviewed: Reports reviewed Discharge - Discharge Clinical Impression: Colitis Vomiting Qualifiers: Vomiting type: unspecified Vomiting Intractability: non-intractable Nausea presence: with nausea Qualified Code(s): R11.2 - Nausea with vomiting, unspecified Abdominal pain Qualifiers: Abdominal location: lower abdomen, unspecified Qualified Code(s): R10.30 - Lower abdominal pain, unspecified Condition: Fair Disposition: ADMITTED INPATIENT Admitting Provider: Jarrod Patrick Unit Admitted: [facility]
[2017-01-05] MEDS ORDERED: CEFTRIAXONE 1 GM/D5W RTU 50 ML IV ONE (22:46)
[2017-01-05] MEDS ORDERED: METRONIDAZOLE 500 MG/NS RTU 100 ML IV ONE (22:46)
[2017-01-05] MEDS ORDERED: DEXTROSE 40% GEL 15 GM TUBE PO PRN ×2 (23:33)
[2017-01-05] MEDS ORDERED: INSULIN LISPRO 100 UNIT/ML 3 ML VIAL SUBCUT PRN (23:33)
[2017-01-05] MEDS ORDERED: DEXTROSE 50%-WATER 25 GM/50 ML DISP.SYRIN IV PRN ×2 (23:33)
[2017-01-05] MEDS ORDERED: GLUCAGON,HUMAN RECOMB 1 MG INJ IM PRN (23:33)
[2017-01-06 00:16] LABS: ADD ON TESTING BLD IN LAB ACKNOWLEDGE
[2017-01-06 00:30] LABS: MAGNESIUM 1.5 mg/dL (1.6-2.3)
[2017-01-06] MEDS ORDERED: NORMAL SALINE 1000 ML 1,000 ML IV PRN (00:36)
[2017-01-06] MEDS ORDERED: MORPHINE SULFATE 10 MG/ML INJ IV PRN (00:41)
[2017-01-06] MEDS ORDERED: RINGERS SOLUTION,LACTATED 1,000 ML IV ONE (01:00)
[2017-01-06] MEDS ORDERED: POTASSI CL 20 MEQ/50 ML RIDER 20 MEQ/50 ML RTUPB IV ONE (01:00)
[2017-01-06] MEDS ORDERED: CIPROFLOXACIN 400 MG/D5W RTU 400 MG/200 ML RTUPB IV ONE (01:00)
[2017-01-06] MEDS: MAGNESIUM SULFATE/D5W 1 GM/100 ML RTUPB IV SCH ×2 (01:20→02:51)
--- NOTE | 2017-01-06 01:30 | PDOC H&P ---
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 Patient has been discussed with emergency room physician who evaluated the patient. Was seen in the emergency room on the of last month for evaluation of similar complaints. CT scan of the abdomen and pelvis revealed colonic wall thickening throughout with mild adjacent inflammatory changes. Discharged home with diagnosis of colitis, with oral Flagyl and Cipro. Took antibiotics for several days. Started feeling much better and stopped taking antibiotics for 2 or 3 days. Starting approximately 4-5 days ago, began having recurrent symptoms, consisting of diffuse cramping at times severe abdominal pain with associated nausea and vomiting with decreased stool output and decreased flatus. Nothing in particular made the pain worse. She's had shaking chills but no fever per se. No chest pain or shortness of breath. No diarrhea. Resume taking her oral antibiotics when the symptoms recurred. However, despite restarting antibiotics, symptoms have gradually progressed. Not able to tolerate much of anything by mouth, including liquids. Laboratory results are listed in [facility] and are reviewed. X-ray summary results are listed below, with full report(s) reviewed. . Social history/personal habits: . Housewife. No alcohol or illicit drug use. Allergies/adverse reactions are listed in [facility] and are reviewed. Home medications currently none, although she does occasionally take a friend's Lyrica, for diabetic neuropathy symptoms involving her feet, which consist of burning pain. Has been off her medications for several months now due to lack of insurance. REVIEW OF SYSTEMS: Constitutional: See history and present illness. Eyes: Wears glasses. ENT: No swallowing problems or complaints. Partial hearing loss. Pulmonary: No current complaints. Cardiovascular: No current complaints, including chest pain. Gastrointestinal: See history and present illness. Skin: No current complaints, including rashes. Hematologic: No unusual easy bruising or bleeding. Neurologic: See history and present illness. Musculoskeletal: Joint pain from arthritis. Psychiatric: Mild depression; denies suicidal or homicidal ideation. Endocrine: No current complaints, including polyuria. Genitourinary: No current complaints, including dysuria. PHYSICAL EXAMINATION: 5 feet 5 inches tall. 89.6 kg. BMI 32.9 kg/m. 103/65. Pulse 103 and regular. 94% saturation on room air. Respirations are 25 and unlabored. Temperature 99.5. Obese somewhat chronically ill-appearing otherwise well-developed female, who appears perhaps a bit older than her stated age. Appears not to feel very well. Pleasant awake alert and cooperative. Mildly anxious, without agitation. Female emergency room nurse Krissy is present. daughter and son are present; patient approves. Skin is warm and dry. No grossly obvious evidence of rash in areas of skin examined. No subcutaneous nodules palpated. ENT: Hearing grossly normal to normal conversation. Tongue midline on protrusion pink and slightly tacky. Eyes: No scleral icterus. Pupils equal and reactive to light at 4 mm. [place] conjunctivae. Neck is supple and nontender to gentle active range of motion and palpation. Midline trachea. No palpable thyroid nodule mass enlargement or tenderness. Lymphatic: No palpable cervical or clavicular nodes. Neck and lymphatic exams limited by patient body habitus. Psychiatric: Reasonable insight into acute and chronic medical issues. Oriented to time location and why here. Lungs: Auscultation reveals clear and equal breath sounds bilaterally. No use of accessory respiratory muscles. Cardiovascular: Heart regular rate and rhythm, without gallop murmur or rub. No carotid or abdominal aortic bruits. No ankle or pedal edema. palpable left dorsalis pedis and right posterior tibial pulses. Abdomen: soft, obese, nontender with positive bowel sounds. Mild diffuse tenderness, without guarding or peritoneal signs. Unable to adequately evaluate abdomen for masses or organomegaly due to body habitus and discomfort. Extremities: Feet are warm and dry. No calf tenderness to compression. No grossly obvious visual evidence of calf swelling. Gentle manipulation of lower extremities fails to reveal any obvious evidence of injury or instability to knees hips or ankles. Neurologic: Moves upper extremities grossly normally. Patellar reflexes absent. Absent Babinski. Light touch is slightly decreased at feet, a chronic finding, according to patient, due to her neuropathy. Dorsiflexion and plantarflexion of feet 5 / 5 and symmetric. Past Medical History Cardiac Medical History: Reports: Hypertension Denies: Congestive Heart Failure, DVT, Myocardial Infarction, Hyperlipidema, Pulmonary Embolism Pulmonary Medical History: Denies: Asthma, Chronic Obstructive Pulmonary Disease (COPD), Sleep Apnea EENT Medical History: Reports: Ears - Partial hearing loss Denies: Eyes, Throat Neurological Medical History: Denies: Hemorrhagic CVA, Ischemic CVA, Seizures Endocrine Medical History: Reports: Diabetes Mellitus Type 2 Denies: Diabetes Mellitus Type 1, Hyperthyroidism, Hypothyroidism Renal/ Medical History: Reports: Other - Occasional urinary incontinence. GI Medical History: Reports: Gastroesophageal Reflux Disease Denies: Cirrhosis, Crohn's Disease, Hepatitis, Ulcerative Colitis Musculoskeltal Medical History: Reports: Arthritis - Rheumatoid arthritis Skin Medical History: Reports: None Psychiatric Medical History: Reports: Depression - intermittent, Tobacco Dependency Denies: Alcohol Dependency, General Anxiety Disorder, Substance Abuse Hematology: Reports: None Infectious Medical History: Denies: Clostridium Difficile, Hepatitis B, Hepatitis C, Methicillin- Resistant Staph Aureus Past Surgical History Past Surgical History: Reports: Section, Cholecystectomy Social History Information Source: Patient, Emergency Med Personnel, COUNTS INCLUDE 234 BEDS AT THE [facility] Records Lives with: Spouse/Significant other Smoking Status: Smoker,Current Status Unk Frequency of Alcohol Use: None Hx Recreational Drug Use: No Hx Prescription Drug Abuse: No - Advance Directive Resuscitation Status: Full Code Surrogate healthcare decision maker:: Family History Family History: Reviewed & Not Pertinent, Other - MOTHER - RA Parental Family History Reviewed: Yes - mother of liver disease; father alive, diabetic. Children Family History Reviewed: Yes - Son with duplicate kidneys, and "highly functional" autism Sibling(s) Family History Reviewed.: Yes - Sister with thyroid disease Medication/Allergy Home Medications: Aspirin [Ecotrin 81 mg EC Tablet] 81 mg PO DAILY tabec 12/24/15 Cyclobenzaprine HCl [Flexeril 10 mg Tablet] 1 tab PO HSP PRN 12/24/15 Fenofibrate Nanocrystallized [Tricor 145 mg Tablet] 145 mg PO QHS #30 tablet Gabapentin [Neurontin 300 mg Capsule] 300 mg PO HSP PRN 12/24/15 Lisinopril [Prinivil 10 mg Tablet] 40 mg PO DAILY #30 tablet 12/24/15 Metformin HCl [Glucophage] 1,000 mg PO BID 12/24/15 Metoprolol Tartrate [Lopressor 50 mg Tablet] 50 mg PO Q12 #60 tablet 12/24/15 Trazodone HCl [Desyrel 50 mg Tablet] 50 mg PO QHS PRN 12/24/15 Doxycycline Hyclate 100 mg PO BID #14 capsule 06/18/16 Oxycodone HCl/Acetaminophen [Percocet 5-325 mg Tablet] 1 - 2 tab PO Q4H PRN #15 tablet 06/18/16 Clindamycin HCl 300 mg PO Q6H #28 capsule 11/23/16 Hydrocodone/Acetaminophen [[place] 5-325 mg Tablet] 1 tab PO Q6H PRN #10 tablet Naproxen 500 mg PO BIDP PRN #10 tablet 11/23/16 Ciprofloxacin HCl [Cipro 500 mg Tablet] 500 mg PO BID #20 tablet 12/15/16 Metronidazole [Flagyl 500 mg Tablet] 500 mg PO Q8H #21 tablet 12/15/16 Allergies/Adverse Reactions: methyldopa [From Aldomet] Allergy (Mild, Verified 01/05/17 17:46) egg [Egg] Allergy (Verified 01/05/17 17:46) tramadol HCl [From Ultram] Allergy (Verified 01/06/17 00:41) Physical Exam Vital Signs: Temp Pulse Resp BP Pulse Ox 99.9 F 111 H 16 122/65 96 01/05/17 21:34 01/05/17 21:34 01/05/17 21:34 01/05/17 21:34 01/05/17 21:34 Results Impressions: Abdomen/Pelvis CT 01/05/17 19:18 IMPRESSION: Wall thickening in the upper sigmoid colon -descending colonic junction, up to 10 mm wall thickness with mild adjacent inflammatory changes and small mesenteric lymph nodes. Differential includes infectious etiology/ diverticulitis and inflammatory bowel disease. Subsegmental atelectasis is present in both lower lobes. Assessment & Plan - Diagnosis (1) Colitis Is this a current diagnosis for this admission?: YesPlan: Intravenous Flagyl and Cipro. Ice chips. GI consult. IV fluids. I have strongly encouraged patient not to get out of bed without notifying staff , to avoid a fall with injury. Knee high SCDs for DVT prophylaxis, along with subcutaneous Lovenox . Impression and plans were discussed with patient, and , both of whom concur. Time spent in evaluation and management of patient: 68 minutes. (2) Hypomagnesemia Is this a current diagnosis for this admission?: YesPlan: Magnesium supplement. (3) Thrombocytopenia Is this a current diagnosis for this admission?: YesPlan: Probably due to underlying infection. Follow-up CBC with differential. (4) Diabetic neuropathy associated with type 2 diabetes mellitus Qualifiers: Diabetes mellitus complication detail: with other neurological complication Qualified Code(s): E11.49 - Type 2 diabetes mellitus with other diabetic neurological complication Is this a current diagnosis for this admission?: YesPlan: Pain medication. Accu-Cheks with appropriate sliding scale coverage. (5) Hypertension Qualifiers: Hypertension type: essential hypertension Is this a current diagnosis for this admission?: Yes (6) Noncompliance Is this a current diagnosis for this admission?: YesPlan: Discharge planning consult to assist patient with medication and other needs. (7) Rheumatoid arthritis Qualifiers: Rheumatoid arthritis location: unspecified site Rheumatoid factor presence: unspecified presence Qualified Code(s): M06.9 - Rheumatoid arthritis, unspecified Is this a current diagnosis for this admission?: YesPlan: Pain control. - Inpatient Certification Based on my medical assessment, after consideration of the patient's comorbidities, presenting symptoms, or acuity I expect that the services needed warrant INPATIENT care.: Yes I certify that my determination is in accordance with my understanding of Medicare's requirements for reasonable and necessary INPATIENT services [42 CFR 412.3e].: Yes Medical Necessity: Failure to Improve With Outpatient Therapy, Need Close Monitoring Due to Risk of Patient Decompensation, Need For IV Fluids, Need For Continuous Telemetry Monitoring, Need for Pain Control, Need for IV Antibiotics , Risk of Complication if Not Cared For in Hospital Post Hospital Care: D/C or Transfer Summary
[2017-01-06] MEDS: ACETAMINOPHEN 325 MG TABLET PO PRN ×2 (04:45→17:25)
[2017-01-06] MEDS: METRONIDAZOLE 500 MG/NS RTU 100 ML IV SCH ×3 (05:45→17:20)
[2017-01-06 06:55] LABS: ABSOLUTE EOSINOPHILS # (AUTO) 0.1 10^3/uL (0.0-0.6); ABSOLUTE LYMPHOCYTES (AUTO) 1.2 10^3/uL (0.5-4.7); ABSOLUTE MONOCYTES (AUTO) 0.8 10^3/uL (0.1-1.4); ABSOLUTE NEUT (AUTO) 6.4 10^3/uL (1.7-8.2); BASOPHILS % (AUTO) 0.5 % (0-2); EOSINOPHILS % (AUTO) 1.1 % (0-6); HEMATOCRIT 39.3 % (36.0-47.0); HEMOGLOBIN 13.2 g/dL (12.0-15.5); HGB HCT DIFFERENCE 0.3; LYMPHOCYTES % (AUTO) 14.2 % (13-45); MEAN CORPUSCULAR HEMOGLOBIN 30.9 pg (27.0-33.4); MEAN CORPUSCULAR HGB CONC 33.5 g/dL (32.0-36.0); MEAN CORPUSCULAR VOLUME 92 fl (80-97); MONOCYTES % (AUTO) 9.9 % (3-13); RED BLOOD COUNT 4.26 10^6/uL (3.72-5.28); RED CELL DISTRIBUTION WIDTH 14.9 % (11.5-14.0); SEGMENTED NEUTROPHILS % (AUTO) 74.3 % (42-78); WHITE BLOOD COUNT 8.6 10^3/uL (4.0-10.5)
[2017-01-06 07:15] LABS: ANION GAP 6 (5-19); BLOOD UREA NITROGEN 7 mg/dL (7-20); CALCIUM 7.8 mg/dL (8.4-10.2); CARBON DIOXIDE 23 mmol/L (22-30); CHLORIDE 109 mmol/L (98-107); CREATININE RESULT 0.68 mg/dL (0.52-1.25); GLUCOSE 96 mg/dL (75-110); POTASSIUM 3.8 mmol/L (3.6-5.0); SODIUM 138.4 mmol/L (137-145)
--- NOTE | 2017-01-06 08:47 | PDOC PROGRESS REPORT ---
Subjective Progress Note for:: 01/06/17 Subjective:: Patient is seen on morning rounds. She is sleeping soundly in bed. She awakens to verbal stimuli. She complains of mild nausea with no vomiting. She states abdominal pain has improved with current medications. She denies any chest pain, shortness breath or dyspnea. She denies any present abdominal pain. She denies any fever or chills. She denies any diarrhea at the present time. She voices no other complaints. Physical Exam Vital Signs: Temp Pulse Resp BP Pulse Ox 98.2 F 83 20 133/73 H 97 01/06/17 07:52 01/06/17 07:52 01/06/17 07:52 01/06/17 07:52 01/06/17 07:52 Intake & Output 01/05/17 01/06/17 01/07/17 06:59 06:59 06:59 Intake Total 500 Balance 500 General appearance: PRESENT: no acute distress, obese, well-developed, well- nourished Head exam: PRESENT: atraumatic, normocephalic Eye exam: PRESENT: conjunctiva pink, EOMI, PERRLA. ABSENT: scleral icterus Ear exam: PRESENT: normal external ear exam Mouth exam: PRESENT: moist, tongue midline Neck exam: ABSENT: carotid bruit, JVD, lymphadenopathy, thyromegaly Respiratory exam: PRESENT: clear to auscultation miya. ABSENT: rales, rhonchi, wheezes Cardiovascular exam: PRESENT: RRR. ABSENT: diastolic murmur, rubs, systolic murmur Pulses: PRESENT: normal dorsalis pedis pul Vascular exam: PRESENT: normal capillary refill GI/Abdominal exam: PRESENT: normal bowel sounds, soft, tenderness - Left upper and right upper quadrants to palpation. Rectal exam: PRESENT: deferred Extremities exam: PRESENT: full ROM. ABSENT: calf tenderness, clubbing, pedal edema Neurological exam: PRESENT: alert, awake, oriented to person, oriented to place , oriented to time, oriented to situation, CN II-XII grossly intact. ABSENT: motor sensory deficit Psychiatric exam: PRESENT: appropriate affect, normal mood. ABSENT: homicidal ideation, suicidal ideation Skin exam: PRESENT: dry, intact, warm. ABSENT: cyanosis, rash Results Laboratory Results: 01/06/17 06:38 01/06/17 06:38 01/06/17 01/06/17 06:38 06:38 WBC 8.6 RBC 4.26 Hgb 13.2 Hct 39.3 MCV 92 MCH 30.9 MCHC 33.5 RDW 14.9 H Plt Count 107 L Seg Neutrophils % 74.3 Lymphocytes % 14.2 Monocytes % 9.9 Eosinophils % 1.1 Basophils % 0.5 Absolute Neutrophils 6.4 Absolute Lymphocytes 1.2 Absolute Monocytes 0.8 Absolute Eosinophils 0.1 Absolute Basophils 0.0 Sodium 138.4 Potassium 3.8 Chloride 109 H Carbon Dioxide 23 Anion Gap 6 BUN 7 Creatinine 0.68 Est GFR ( Amer) > 60 Est GFR (Non-Af Amer) > 60 Glucose 96 Calcium 7.8 L Impressions: Abdomen/Pelvis CT 01/05/17 19:18 IMPRESSION: Wall thickening in the upper sigmoid colon -descending colonic junction, up to 10 mm wall thickness with mild adjacent inflammatory changes and small mesenteric lymph nodes. Differential includes infectious etiology/ diverticulitis and inflammatory bowel disease. Subsegmental atelectasis is present in both lower lobes. Assessment & Plan - Diagnosis (1) Colitis Is this a current diagnosis for this admission?: YesPlan: We'll continue IV Cipro and Flagyl. Await GI consult. (2) Generalized abdominal pain Is this a current diagnosis for this admission?: YesPlan: She presently comfortable at the present time. We'll continue as needed morphine (3) Nausea & vomiting Qualifiers: Vomiting type: unspecified Vomiting Intractability: non-intractable Qualified Code(s): R11.2 - Nausea with vomiting, unspecified Is this a current diagnosis for this admission?: YesPlan: When necessary Zofran as ordered. (4) Hypokalemia Is this a current diagnosis for this admission?: YesPlan: Replete as needed and monitor (5) Hypomagnesemia Is this a current diagnosis for this admission?: YesPlan: Replete as needed and monitor (6) Diabetes mellitus type 2 in obese Is this a current diagnosis for this admission?: YesPlan: Patient is presently on sliding scale insulin coverage only. (7) Hypertension Qualifiers: Hypertension type: essential hypertension Is this a current diagnosis for this admission?: Yes (8) Diabetic neuropathy associated with type 2 diabetes mellitus Qualifiers: Diabetes mellitus complication detail: with other neurological complication Qualified Code(s): E11.49 - Type 2 diabetes mellitus with other diabetic neurological complication Is this a current diagnosis for this admission?: YesPlan: Continue neuroleptics (9) Noncompliance Is this a current diagnosis for this admission?: YesPlan: Patient is counseled. She lost insurance coverage. We'll have discharge planning assister prior to discharge (10) Obesity (BMI 30-39.9) Is this a current diagnosis for this admission?: YesPlan: Patient was counseled on need for weight reduction. Discussed dietary modifications and increasing exercise - Time Time Spent with patient: 25-34 minutes Critical Time spent with patient: 15-24 minutes Medications reviewed and adjusted accordingly: Yes Anticipated discharge: Home
[2017-01-06] MEDS: ENOXAPARIN SODIUM INJ 40 MG/0.4 ML DISP.SYRIN SUBCUT SCH (09:36)
[2017-01-06] MEDS: ONDANSETRON HCL INJ/PF 4 MG/2 ML SDV IV PRN ×2 (09:39→17:20)
[2017-01-06] MEDS: CIPROFLOXACIN 400 MG/D5W RTU 400 MG/200 ML RTUPB IV SCH ×2 (09:39→21:53)
[2017-01-06] MEDS: DEXTROSE 5%-1/2 NORMAL SALINE 1,000 ML IV PRN (17:21)
--- NOTE | 2017-01-06 19:03 | PDOC CONSULTATION ---
Consultation Consult Date: 01/06/17 History of Present Illness Admission Date/PCP: 01/06/17 00:32 History of Present Illness: This is a 41-year-old patient was admitted yesterday with abdominal pain, change in bowel habit and abnormal CAT scan. She had presented on for 1716 with a 10 day history of abdominal pain and diarrhea. She had a CAT scan at that time that showed pancolonic wall thickening. She was started on Cipro and Flagyl which she took initially for 10 days because she was feeling a lot better. She had to resume the medications a few days later to complete the two weeks course. She came back to the hospital because her pain started up again and this time was associated with some fever. She continues to have frequent bowel movement with small amount of stool. She has recurrent abdominal cramps. She does see blood but mostly after wiping. She has been having more nausea since this admission. Currently she is on IV ceftriaxone, Cipro, and Flagyl. A repeat CAT scan performed yesterday showed thickening in the left colon only and the thickening was less than the CAT scan from 12/15/2016. She has no history of colitis and has never had a colonoscopy. Her bowels generally move every day with occasional diarrhea since she had her cholecystectomy almost 20 years ago. There is no one at home with similar illness and she has not been out of the country lately Past Medical History Cardiac Medical History: Reports: Hypertension Denies: Congestive Heart Failure, DVT, Myocardial Infarction, Hyperlipidema, Pulmonary Embolism Pulmonary Medical History: Denies: Asthma, Chronic Obstructive Pulmonary Disease (COPD), Sleep Apnea EENT Medical History: Reports: Ears - Partial hearing loss Denies: Eyes, Throat Neurological Medical History: Denies: Hemorrhagic CVA, Ischemic CVA, Seizures Endocrine Medical History: Reports: Diabetes Mellitus Type 2 Denies: Diabetes Mellitus Type 1, Hyperthyroidism, Hypothyroidism Renal/ Medical History: Reports: Other - Occasional urinary incontinence. GI Medical History: Reports: Gastroesophageal Reflux Disease Denies: Cirrhosis, Crohn's Disease, Hepatitis, Ulcerative Colitis Musculoskeltal Medical History: Reports: Arthritis - Rheumatoid arthritis Skin Medical History: Reports: None Psychiatric Medical History: Reports: Depression - intermittent, Tobacco Dependency Denies: Alcohol Dependency, General Anxiety Disorder, Substance Abuse Hematology: Reports: None Infectious Medical History: Denies: Clostridium Difficile, Hepatitis B, Hepatitis C, Methicillin- Resistant Staph Aureus Past Surgical History Past Surgical History: Reports: Section, Cholecystectomy Social History Lives with: Spouse/Significant other Smoking Status: Never Smoker Cigarettes Packs Per Day: 1 Frequency of Alcohol Use: None Hx Recreational Drug Use: No Drugs: None Hx Prescription Drug Abuse: No - Advance Directive Resuscitation Status: Full Code Family History Family History: Reviewed & Not Pertinent, Other - MOTHER - RA Parental Family History Reviewed: No Children Family History Reviewed: NA Sibling(s) Family History Reviewed.: NA Medication/Allergy Home Medications: No Home Medications 01/06/17 Allergies/Adverse Reactions: methyldopa [From Aldomet] Allergy (Mild, Verified 01/05/17 17:46) egg [Egg] Allergy (Verified 01/05/17 17:46) tramadol HCl [From Ultram] Allergy (Verified 01/06/17 00:41) Review of Systems All systems: reviewed and no additional remarkable complaints except as stated Physical Exam Vital Signs: Temp Pulse Resp BP Pulse Ox 97.9 F 72 14 115/69 96 01/06/17 16:09 01/06/17 16:09 01/06/17 16:09 01/06/17 16:09 01/06/17 16:09 Intake & Output 01/05/17 01/06/17 01/07/17 06:59 06:59 06:59 Intake Total 500 3048 Output Total 2850 Balance 500 198 Exam: General: Patient is alert and looks well. HEENT: There is no pallor or jaundice. PERRLA. Oropharynx normal Respiratory: No chest deformity. No respiratory distress. Chest wall palpitation was unremarkable. Breath sounds were normal Cardiovascular: Heart sounds 1 and 2 normal with no murmurs. Abdominal: Not distended. Soft and with minimal tenderness. Liver and spleen not palpable. No ascites demonstrated. Bowel sounds active. Rectal examination was deferred. Extremities: No edema Neurological: Alert and oriented x4. Grossly nonfocal. Normal speech Skin: No significant rash Psychological: Normal affect Results Laboratory Results: 01/06/17 06:38 01/06/17 06:38 01/06/17 01/06/17 06:38 06:38 WBC 8.6 RBC 4.26 Hgb 13.2 Hct 39.3 MCV 92 MCH 30.9 MCHC 33.5 RDW 14.9 H Plt Count 107 L Seg Neutrophils % 74.3 Lymphocytes % 14.2 Monocytes % 9.9 Eosinophils % 1.1 Basophils % 0.5 Absolute Neutrophils 6.4 Absolute Lymphocytes 1.2 Absolute Monocytes 0.8 Absolute Eosinophils 0.1 Absolute Basophils 0.0 Sodium 138.4 Potassium 3.8 Chloride 109 H Carbon Dioxide 23 Anion Gap 6 BUN 7 Creatinine 0.68 Est GFR ( Amer) > 60 Est GFR (Non-Af Amer) > 60 Glucose 96 Calcium 7.8 L Impressions: Abdomen/Pelvis CT 01/05/17 19:18 IMPRESSION: Wall thickening in the upper sigmoid colon -descending colonic junction, up to 10 mm wall thickness with mild adjacent inflammatory changes and small mesenteric lymph nodes. Differential includes infectious etiology/ diverticulitis and inflammatory bowel disease. Subsegmental atelectasis is present in both lower lobes. Assessment & Plan - Diagnosis (1) Colitis Is this a current diagnosis for this admission?: YesPlan: She does have symptoms and CAT scan findings consistent with colitis which I suspected is infectious in etiology. Her disease course is lasting longer than usual. Her CAT scan has actually improved when compared with three weeks ago. We should continue with antibiotics and I would suggest using Augmentin in addition to Flagyl instead of Cipro. She will need a colonoscopy at some point but I will hold off for another 4-6 weeks (2) Abnormal CT scan, gastrointestinal tract Is this a current diagnosis for this admission?: Yes (3) Abdominal pain Qualifiers: Abdominal location: lower abdomen, unspecified Qualified Code(s): R10.30 - Lower abdominal pain, unspecified Is this a current diagnosis for this admission?: Yes (4) Nausea & vomiting Qualifiers: Vomiting type: unspecified Vomiting Intractability: non-intractable Qualified Code(s): R11.2 - Nausea with vomiting, unspecified Is this a current diagnosis for this admission?: YesPlan: I suspect her current nausea is likely from her medications especially the antibiotics. Hopefully this will improve over time.
[2017-01-07] MEDS: METRONIDAZOLE 500 MG/NS RTU 100 ML IV SCH ×2 (00:52→05:57)
[2017-01-07 05:10] LABS: BLOOD UREA NITROGEN 4 mg/dL (7-20); CALCIUM 7.6 mg/dL (8.4-10.2); CHLORIDE 112 mmol/L (98-107); CREATININE RESULT 0.62 mg/dL (0.52-1.25); GLUCOSE 112 mg/dL (75-110); MAGNESIUM 2.1 mg/dL (1.6-2.3); POTASSIUM 3.5 mmol/L (3.6-5.0)
[2017-01-07 05:18] LABS: ANION GAP 5 (5-19); CARBON DIOXIDE 22 mmol/L (22-30); SODIUM 139.2 mmol/L (137-145)
[2017-01-07] MEDS ORDERED: POTASSIUM CHLORIDE 10 MEQ TABLET.SA PO ONE (07:45)
[2017-01-07] MEDS: ENOXAPARIN SODIUM INJ 40 MG/0.4 ML DISP.SYRIN SUBCUT SCH (08:20)
[2017-01-07] MEDS: DEXTROSE 5%-1/2 NORMAL SALINE 1,000 ML IV PRN (08:29)
[2017-01-07] MEDS ORDERED: AMOXICILLIN TR/POT CLAVULANATE 500-125 MG TAB PO SCH (14:00)
[2017-01-07] MEDS ORDERED: METRONIDAZOLE 500 MG TABLET PO SCH (14:00)
[2017-01-07 15:12] VITALS: BP 111/69
--- NOTE | 2017-01-07 15:22 | PDOC DISCHARGE SUMMARY ---
General - Admit/Disc Date/PCP Admission Date/Primary Care Provider: 01/06/17 00:32 Discharge Date: 01/07/17 - Discharge Diagnosis (1) Colitis Is this a current diagnosis for this admission?: YesSummary: Patient will be continued on oral antibiotics Augmentin and Flagyl per recommendations of Dr. Shepard (2) Generalized abdominal pain Is this a current diagnosis for this admission?: YesSummary: Improved (3) Nausea & vomiting Is this a current diagnosis for this admission?: YesSummary: Improved (4) Hypokalemia Is this a current diagnosis for this admission?: YesSummary: Resolved (5) Hypomagnesemia Is this a current diagnosis for this admission?: YesSummary: Resolved (6) Diabetes mellitus type 2 in obese Is this a current diagnosis for this admission?: YesSummary: Continue current medications (7) Hypertension Is this a current diagnosis for this admission?: YesSummary: Continue current medications (8) Diabetic neuropathy associated with type 2 diabetes mellitus Is this a current diagnosis for this admission?: YesSummary: Continue neurolyptics (9) Noncompliance Is this a current diagnosis for this admission?: YesSummary: Counseled patient without insurance (10) Obesity (BMI 30-39.9) Is this a current diagnosis for this admission?: YesSummary: Counseled - Additional Information Resuscitation Status: Full Code Discharge Diet: Regular Discharge Activity: Activity As Tolerated, Balance Activity w/Rest Home Medications: Acetaminophen [Tylenol 325 mg Tablet] 650 mg PO Q4HP PRN tablet 01/07/17 Amox Tr/Potassium Clavulanate [Augmentin 875-125 mg Tablet] 1 tab PO BID #20 tablet 01/07/17 Hydrocodone/Acetaminophen [Protivin 5-325 mg Tablet] 1 tab PO Q4H #20 tablet Metronidazole [Flagyl 500 mg Tablet] 500 mg PO Q8 #30 tablet 01/07/17 History of Present Illness Patient complains of: Abdominal pain and vomiting History of Present Illness: BLU TERAN is a 41 year old obese female with underlying type II diabetes mellitus with peripheral neuropathy associated with same, hypertension, rheumatoid arthritis, mild depression without suicidal or homicidal ideation, partial hearing loss, occasional heartburn, and occasional urinary incontinence, but no personal or family history of inflammatory bowel disease, including Crohn's disease, ulcerative colitis, or irritable bowel syndrome, who presents to the emergency room for evaluation of above complaints. Patient has been discussed with emergency room physician who evaluated the patient. Was seen in the emergency room on the of last month for evaluation of similar complaints. CT scan of the abdomen and pelvis revealed colonic wall thickening throughout with mild adjacent inflammatory changes. Discharged home with diagnosis of colitis, with oral Flagyl and Cipro. Took antibiotics for several days. Started feeling much better and stopped taking antibiotics for 2 or 3 days. Starting approximately 4-5 days ago, began having recurrent symptoms, consisting of diffuse cramping at times severe abdominal pain with associated nausea and vomiting with decreased stool output and decreased flatus. Nothing in particular made the pain worse. She's had shaking chills but no fever per se. No chest pain or shortness of breath. No diarrhea. Resume taking her oral antibiotics when the symptoms recurred. However, despite restarting antibiotics, symptoms have gradually progressed. Not able to tolerate much of anything by mouth, including liquids. Hospital Course Hospital Course: Patient admitted to hospitalist service on telemetry service. Patient was started on IV flagyl and cipro. Blood cultures were obtained prior. Patient was kept NPO CT of the abdomen and pelvis showed colitis but improvement from CT 3 weeks prior. She was given IV analgesics with improvement in pain and IV zofran for nausea. GI was consulted. Dr Shepard saw the patient in consult. He recommended continued antibiotics and colonoscopy in 4-6 weeks. She was given a regular diet today, with no nausea or vomiting. She has had only mild discomfort. Physical Exam Vital Signs: Temp Pulse Resp BP Pulse Ox 98.0 F 63 20 124/79 100 01/07/17 12:21 01/07/17 12:21 01/07/17 12:21 01/07/17 12:21 01/07/17 12:21 Intake & Output 01/06/17 01/07/17 01/08/17 06:59 06:59 06:59 Intake Total 500 6288 Output Total 4300 Balance 500 1987 General appearance: PRESENT: no acute distress, well-developed, well-nourished Head exam: PRESENT: atraumatic, normocephalic Eye exam: PRESENT: conjunctiva pink, EOMI, PERRLA. ABSENT: scleral icterus Ear exam: PRESENT: normal external ear exam Mouth exam: PRESENT: moist, tongue midline Neck exam: ABSENT: carotid bruit, JVD, lymphadenopathy, thyromegaly Respiratory exam: PRESENT: clear to auscultation miya. ABSENT: rales, rhonchi, wheezes Cardiovascular exam: PRESENT: RRR. ABSENT: diastolic murmur, rubs, systolic murmur Pulses: PRESENT: normal dorsalis pedis pul Vascular exam: PRESENT: normal capillary refill GI/Abdominal exam: PRESENT: normal bowel sounds, soft. ABSENT: distended, guarding, mass, organolmegaly, rebound, tenderness Rectal exam: PRESENT: deferred Extremities exam: PRESENT: full ROM. ABSENT: calf tenderness, clubbing, pedal edema Neurological exam: PRESENT: alert, awake, oriented to person, oriented to place , oriented to time, oriented to situation, CN II-XII grossly intact. ABSENT: motor sensory deficit Psychiatric exam: PRESENT: appropriate affect, normal mood. ABSENT: homicidal ideation, suicidal ideation Skin exam: PRESENT: dry, intact, warm. ABSENT: cyanosis, rash Results Laboratory Results: 01/06/17 06:38 01/07/17 04:42 01/07/17 04:42 Sodium 139.2 Potassium 3.5 L Chloride 112 H Carbon Dioxide 22 Anion Gap 5 BUN 4 L Creatinine 0.62 Est GFR ( Amer) > 60 Est GFR (Non-Af Amer) > 60 Glucose 112 H Calcium 7.6 L Magnesium 2.1 Impressions: Abdomen/Pelvis CT 01/05/17 19:18 IMPRESSION: Wall thickening in the upper sigmoid colon -descending colonic junction, up to 10 mm wall thickness with mild adjacent inflammatory changes and small mesenteric lymph nodes. Differential includes infectious etiology/ diverticulitis and inflammatory bowel disease. Subsegmental atelectasis is present in both lower lobes. Qualifiers PATEINT BEING DISCHARGED WITH ANY OF THE FOLLOWING DIAGNOSIS?: No Plan Discharge Plan: Home with family Time Spent: Less than 30 Minutes
== END 2017-01-07 15:42 | disposition home or self-care (01) | DRG 392 ==
LOC: ER 17:28 → EH 23:12 → UNDOADMIN 23:12 → EH 01-06 00:32 → 4N 01-06 02:50
PROVIDERS: ADMIT Family Medicine; ATTEND Family Medicine
DX: K52.9 Noninfective gastroenteritis and colitis, unspecified (principal); I10 Essential (primary) hypertension; E11.42 Type 2 diabetes mellitus with diabetic polyneuropathy; E83.42 Hypomagnesemia; D69.6 Thrombocytopenia, unspecified; M06.9 Rheumatoid arthritis, unspecified; E66.9 Obesity, unspecified; F32.9 Major depressive disorder, single episode, unspecified; Z59.8 Other problems related to housing and economic circumstances; Z79.84 Long term (current) use of oral hypoglycemic drugs; Z79.82 Long term (current) use of aspirin; Z79.899 Other long term (current) drug therapy; Z91.19 Patient's noncompliance with other medical treatment and regimen; Z68.32 Body mass index [BMI] 32.0-32.9, adult
CPT/HCPCS: 36415; 74177; 80048; 80053; 81001; 81025; 82962; 83605; 83690; 83735; 85025; 87040; 94799; 96361; 96374; 96375; 99285; J0696; J0744; J2270; J2405; J3475; J3480; J3490; J7030; J7120

== ENCOUNTER 2017-01-28 11:41 | Inpatient (IN) | payer MEDICAID, OTHER ==
[2017-01-28] MEDS ORDERED: NORMAL SALINE 1000 ML 1,000 ML IV ONE (12:33)
[2017-01-28] MEDS ORDERED: ACETAMINOPHEN 325 MG TABLET PO ONE (12:33)
--- NOTE | 2017-01-28 12:39 | ER Document Report ---
ED Medical Screen (RME) - General Chief Complaint: Abdominal Pain Stated Complaint: STOMACH PAIN Time Seen by Provider: 01/28/17 12:10 Mode of Arrival: Wheelchair Information source: Patient, [facility] Records Notes: This is a 41-year-old female with a history of diabetes among other medical problems who presents with abdominal pain, back pain, fever since last night. Of note she was admitted to the hospital from January 02 - January 05 for colitis and responded well to IV antibiotics. She states that she has severe back pain and has been running fevers and having nausea. She has not vomited. She did have a small bowel movement this morning. She states she feels that she may pass out. In the triage room patient is noted to be pale and profusely diaphoretic. Her vital signs are concerning for possible sepsis. She will be taken straight back to bed 6 at this time. I have greeted and performed a rapid initial assessment of this patient. A comprehensive ED assessment and evaluation of the patient, analysis of test results and completion of the medical decision making process will be conducted by additional ED providers. TRAVEL OUTSIDE OF THE [place] IN LAST 30 DAYS: No - Related Data Allergies/Adverse Reactions: methyldopa [From Aldomet] Allergy (Mild, Verified 01/28/17 12:08) egg [Egg] Allergy (Verified 01/28/17 12:08) tramadol HCl [From Ultram] Allergy (Verified 01/28/17 12:08) Past Medical History - Past Medical History Cardiac Medical History: Reports: Hx Hypertension Denies: Hx Congestive Heart Failure, Hx DVT, Hx Heart Attack, Hx Hypercholesterolemia, Hx Pulmonary Embolism Pulmonary Medical History: Denies: Hx Asthma, Hx COPD, Hx Sleep Apnea Neurological Medical History: Denies: Hx Seizures Endocrine Medical History: Reports: Hx Diabetes Mellitus Type 2. Denies: Hx Diabetes Mellitus Type 1, Hx Hyperthyroidism, Hx Hypothyroidism Renal/ Medical History: Denies: Hx Peritoneal Dialysis GI Medical History: Reports: Hx Gastroesophageal Reflux Disease. Denies: Hx Cirrhosis, Hx Crohn's Disease, Hx Hepatitis, Hx Ulcerative Colitis Musculoskeltal Medical History: Reports Hx Arthritis - Rheumatoid arthritis Psychiatric Medical History: Reports: Hx Depression - intermittent Infectious Medical History: Denies: Hx C-Diff, Hx Hepatitis, Hx MRSA Past Surgical History: Reports: Hx Section, Hx Cholecystectomy - Immunizations Hx Diphtheria, Pertussis, Tetanus Vaccination: Yes
[2017-01-28 13:14] LABS: PROTHROMBIN TIME 15.3 SEC (11.4-15.4)
[2017-01-28 13:17] LABS: ABSOLUTE LYMPHOCYTES (AUTO) 0.6 10^3/uL (0.5-4.7); ABSOLUTE MONOCYTES (AUTO) 1.1 10^3/uL (0.1-1.4); ABSOLUTE NEUT (AUTO) 6.9 10^3/uL (1.7-8.2); BASOPHILS % (AUTO) 0.2 % (0-2); EOSINOPHILS % (AUTO) 0.2 % (0-6); HEMATOCRIT 48.9 % (36.0-47.0); HEMOGLOBIN 16.2 g/dL (12.0-15.5); HGB HCT DIFFERENCE -0.3; LYMPHOCYTES % (AUTO) 7.4 % (13-45); MEAN CORPUSCULAR HEMOGLOBIN 30.6 pg (27.0-33.4); MEAN CORPUSCULAR HGB CONC 33.2 g/dL (32.0-36.0); MEAN CORPUSCULAR VOLUME 92 fl (80-97); MONOCYTES % (AUTO) 12.5 % (3-13); RED CELL DISTRIBUTION WIDTH 15.1 % (11.5-14.0); SEGMENTED NEUTROPHILS % (AUTO) 79.7 % (42-78); WHITE BLOOD COUNT 8.7 10^3/uL (4.0-10.5)
[2017-01-28 13:21] LABS: VENOUS BLOOD BASE EXCESS -2.5 mmol/L; VENOUS BLOOD PCO2 37.8 mmHg (35-63); VENOUS BLOOD PH 7.38 (7.30-7.42)
[2017-01-28 13:32] LABS: ALANINE AMINOTRANSFERASE 20 U/L (9-52); ALBUMIN 3.6 g/dL (3.5-5.0); ALKALINE PHOSPHATASE 49 U/L (38-126); ANION GAP 13 (5-19); ASPARTATE AMINO TRANSFERASE 14 U/L (14-36); BILIRUBIN,DIRECT 0.5 mg/dL (0.0-0.4); BILIRUBIN,TOTAL 1.3 mg/dL (0.2-1.3); BLOOD UREA NITROGEN 9 mg/dL (7-20); CALCIUM 8.7 mg/dL (8.4-10.2); CARBON DIOXIDE 21 mmol/L (22-30); CHLORIDE 104 mmol/L (98-107); CREATININE RESULT 0.77 mg/dL (0.52-1.25); GLUCOSE 124 mg/dL (75-110); POTASSIUM 3.6 mmol/L (3.6-5.0); SODIUM 138.3 mmol/L (137-145)
[2017-01-28 13:39] LABS: APPEARANCE,URINE SLIGHTLY-CLOUDY; BILIRUBIN,URINE NEGATIVE (NEGATIVE); GLUCOSE, URINE NEGATIVE (NEGATIVE); KETONES,URINE NEGATIVE (NEGATIVE); LEUKOCYTE ESTERASE,URINE NEGATIVE (NEGATIVE); NITRITE,URINE NEGATIVE (NEGATIVE); PROTEIN,URINE NEGATIVE (NEGATIVE); URINE SPECIFIC GRAVITY 1.015; UROBILINOGEN,URINE NEGATIVE mg/dL (<2.0)
--- NOTE | 2017-01-28 13:54 | RADIOLOGY REPORT (SQ) ---
EXAM DESCRIPTION: CHEST SINGLE VIEW COMPLETED DATE/TIME: 01/28/2017 1:47 pm REASON FOR STUDY: fever, back pain COMPARISON: 11/23/2016. EXAM PARAMETERS: NUMBER OF VIEWS: One view. TECHNIQUE: Single frontal radiographic view of the chest acquired. RADIATION DOSE: NA LIMITATIONS: None. FINDINGS: LUNGS AND PLEURA: Faint density in the left lower lobe. No pleural effusion. No pneumoth orax. MEDIASTINUM AND HILAR STRUCTURES: No masses. Contour normal. HEART AND VASCULAR STRUCTURES: Heart normal in size. Normal vasculature. BONES: No acute findings. HARDWARE: None in the chest. OTHER: No other significant finding. IMPRESSION: FAINT DENSITY IN THE LEFT LOWER LOBE, POSSIBLE EARLY PNEUMONIA. TECHNICAL DOCUMENTATION: JOB ID: [id number]
[2017-01-28] MEDS ORDERED: CEFTRIAXONE 2 GM/D5W RTU 50 ML IV ONE (14:12)
--- NOTE | 2017-01-28 15:27 | ER Document Report ---
ED GI/ - General Chief Complaint: Abdominal Pain Stated Complaint: STOMACH PAIN Time Seen by Provider: 01/28/17 12:10 Mode of Arrival: Wheelchair Notes: Patient is here complaining of nausea for the past couple of days. Also complaining that her entire back is hurting, everywhere for the past week. Patient was here at this hospital in November and then here again in December and was admitted on this visit in December with same symptoms she is having now. She was diagnosed as having colitis. She was discharged from the December visit on , 2 day stay. She has been on Flagyl and Augmentin ever since then until her last doses that she took of those 2 medications on Thursday. She says she is having some vomiting but mainly nausea. A small amount of diarrhea. Denies any UTI symptoms. Some slight cough but not much phlegm produced. Feel she is having chills and cold sweats, but has not taken her temperature. LMP May in August of this year. Surgeries include cholecystectomy and . TRAVEL OUTSIDE OF THE [place] IN LAST 30 DAYS: No - Related Data Allergies/Adverse Reactions: methyldopa [From Aldomet] Allergy (Mild, Verified 01/28/17 12:08) egg [Egg] Allergy (Verified 01/28/17 12:08) tramadol HCl [From Ultram] Allergy (Verified 01/28/17 12:08) Past Medical History - General Information source: Patient, [facility] Records - Social History Smoking Status: Current Every Day Smoker Chew tobacco use (# tins/day): No Frequency of alcohol use: None Drug Abuse: None Family History: Reviewed & Not Pertinent, Other - MOTHER - RA Patient has suicidal ideation: No Patient has homicidal ideation: No - Past Medical History Cardiac Medical History: Reports: Hx Hypertension Endocrine Medical History: Reports: Hx Diabetes Mellitus Type 2 GI Medical History: Reports: Hx Gastroesophageal Reflux Disease Musculoskeltal Medical History: Reports Hx Arthritis - Rheumatoid arthritis Psychiatric Medical History: Reports: Hx Depression - intermittent Past Surgical History: Reports: Hx Section, Hx Cholecystectomy - Immunizations Hx Diphtheria, Pertussis, Tetanus Vaccination: Yes Review of Systems - Review of Systems Notes: REVIEW OF SYSTEMS: CONSTITUTIONAL : Feverish with chills and sweats. EENT: Denies eye, ear, nose or mouth or throat pain or other symptoms. CARDIOVASCULAR: Denies chest pain. RESPIRATORY: Denies much cough, and denies chest congestion, or shortness of breath. GASTROINTESTINAL: Has generalized abdominal pain nausea and vomiting, and slight diarrhea. GENITOURINARY: Denies difficulty or painful urinating, urinary frequency, blood in urine. MUSCULOSKELETAL: Denies back or neck pain. Denies joint pain or swelling. SKIN: Denies rash or skin lesions. NEUROLOGICAL: Denies LOC or altered mental status. Denies headache. Denies sensory loss or motor deficits. ALL OTHER SYSTEMS REVIEWED AND NEGATIVE. Physical Exam - Vital signs Vitals: Temp Pulse Resp BP Pulse Ox 101.0 F H 126 H 22 H 103/70 96 01/28/17 11:58 01/28/17 11:58 01/28/17 11:58 01/28/17 11:58 01/28/17 11:58 Interpretation: Tachycardic, Febrile - Notes Notes: PHYSICAL EXAMINATION: GENERAL: Well-appearing, in no acute distress. Febrile and tachycardic. HEAD: Atraumatic, normocephalic. EYES: Pupils equal round and reactive to light, extraocular movements intact. ENT: oropharynx clear without exudates. Moist mucous membranes. NECK: Normal range of motion, supple. LUNGS: Breath sounds clear and equal bilaterally. HEART: Regular rate and rhythm without murmurs. ABDOMEN: Soft with mild tenderness diffusely. No localized tenderness. No guarding and no rebound noted. Bowel sounds are present. No bruits heard. BACK: No tenderness throughout entire back. EXTREMITIES: Normal range of motion without pain. NEUROLOGICAL: Normal speech, normal gait. Normal sensory, motor, and reflex exams. Awake, alert, and oriented x3. Cranial nerves normal. PSYCH: Normal mood, normal affect. SKIN: Warm, dry, no rashes. Course - Re-evaluation Re-evalutation: 01/28/17 15:28 Initial labs were obtained. Patient was started on Rocephin initially. 01/28/17 17:15 Spoke with hospitalist publicity person who will be admitting the patient for C. difficile colitis. - Vital Signs Vital signs: Temp Pulse Resp BP Pulse Ox 98.7 F 126 H 21 H 136/67 H 95 01/28/17 16:14 01/28/17 11:58 01/28/17 13:25 01/28/17 13:25 01/28/17 13:25 - Laboratory Result Diagrams: 01/28/17 12:59 01/28/17 12:59 Laboratory results interpreted by me: 01/28/17 01/28/17 01/28/17 12:59 12:59 12:59 RBC 5.30 H Hgb 16.2 H Hct 48.9 H RDW 15.1 H Plt Count 115 L Seg Neutrophils % 79.7 H Lymphocytes % 7.4 L Carbon Dioxide 21 L Glucose 124 H POC Glucose Lactic Acid 2.3 H Direct Bilirubin 0.5 H 01/28/17 13:22 RBC Hgb Hct RDW Plt Count Seg Neutrophils % Lymphocytes % Carbon Dioxide Glucose POC Glucose 112 H Lactic Acid Direct Bilirubin - Diagnostic Test Radiology reviewed: Image reviewed, Reports reviewed - CT scan shows changes consistent with colitis. No evidence of perforation or abscess formation. Discharge - Discharge Clinical Impression: Colitis, Colitis due to Clostridium difficile Condition: Stable Disposition: ADMITTED INPATIENT Admitting Provider: Hospitalist Unit Admitted: Medical Floor
--- NOTE | 2017-01-28 16:18 | RADIOLOGY REPORT (SQ) ---
EXAM DESCRIPTION: CT ABD/PELVIS NO ORAL OR IV COMPLETED DATE/TIME: 01/28/2017 3:59 pm REASON FOR STUDY: Hx colitis, abdominal pain, fever COMPARISON: 01/05/2017. 12/15/2016. TECHNIQUE: CT scan of the abdomen and pelvis performed without intravenous or oral contrast. Images reviewed with lung, soft tissue, and bone windows. Reconstructed coronal and sagittal MPR images revi ewed. All images stored on PACS. All CT scanners at this facility use dose modulation, iterative reconstruction, and/or weight based d osing when appropriate to reduce radiation dose to as low as reasonably achievable (ALARA). [facility]: Dose Right [facility]: CareDose [facility]: Dose Right [facility]: Teradose 4D [facility]: [employer] RADIATION DOSE: 15.06mGy. LIMITATIONS: None. FINDINGS: BOWEL AND PERITONEAL CAVITY: Mild pericolonic fat stranding along the descending colon ext ending to junction with the sigmoid. Minimal scattered diverticula through this area. No drainable abscess. No free perforation or free fluid. Probable associated wall thickening, including in the m ore proximal colon. Similar appearance compared to prior imaging, no gross progression. No developi ng bowel obstruction. No adenopathy. SOLID ORGANS AND BILIARY TREE: Noncontrast appearance of the liver, spleen, kidneys, pancreas unrema rkable. Post cholecystectomy. OTHER: Subsegmental atelectasis and scarring in the lung bases. No aortic aneurysm. No bone lesions . IMPRESSION: 1. Similar findings related to the distal colon. This includes mild pericolonic fat str anding and some wall thickening which looks relatively nonprogressive compared to prior imaging over the past 1.5 months. Does the patient have inflammatory bowel disease such as Crohn's colitis? No e vidence of perforation or developing abscess or obstruction. No other acute or suspicious abdominope lvic abnormality. TECHNICAL DOCUMENTATION: JOB ID: [id number] Quality ID # [id number]: Final reports with documentation of one or more dose reduction techniques (e.g., Au tomated exposure control, adjustment of the mA and/or kV according to patient size, use of iterative reconstruction technique) 2010 [employer]- All Rights Reserved
[2017-01-28] MEDS ORDERED: VANCOMYCIN HCL INJ 500 MG VIAL PO SCH (18:00)
--- NOTE | 2017-01-28 18:17 | PDOC H&P ---
History of Present Illness Admission Date/PCP: 01/28/17 no PCP Patient complains of: abdominal pain History of Present Illness: BLU TERAN is a 41 year old female presents to the ED from home with gradual worsening of lower abdominal pain described as cramping, nonradiating, worse just before BM and relieved some by BM but not completely and asct'd with increasing diarrhea of slimy, foul stool without melena/hematochezia, intermittent nausea, worsening anorexia. she was just admitted 01/06/17 for colitis and similar symptoms though not as intense, treated with augmentin/ flagyl finishing both those this past Thursday after which her symptoms began to return. Prior to this in 12/15 she was diagnosed with abscessed tooth, seen in ED and given clindamycin. Prior to that she reports a GI illness in 05/2016 of N/V/D nonbloody and with low grade fevers and chills that ran its course over about a week she thought was just a "viral bug" and didn't seek medical attention but since that time "I just haven't felt right" with loss of appetite , no interest in sweets/desserts or high sugar foods/drinks she used to crave, # 40 unintentional weight loss and early satiety with intermittent heartburn symptoms she treats with occasional OTC antacids. she was seen by dr lozada during her last hospitalization who planned to see her in a few weeks after acute illness cleared for colonoscopy but here she is again. eval in ED shows persistent colitis on exam and imaging, really no better than before but this time a stools was sent and came back +ve for cdiff. we were asked to admit for further eval and management. Past Medical History Cardiac Medical History: Reports: Hypertension Denies: Congestive Heart Failure, DVT, Myocardial Infarction, Hyperlipidema, Pulmonary Embolism Pulmonary Medical History: Denies: Asthma, Chronic Obstructive Pulmonary Disease (COPD), Sleep Apnea Neurological Medical History: Denies: Seizures Endocrine Medical History: Reports: Diabetes Mellitus Type 2 - A1c 2016 = 6.7 Denies: Diabetes Mellitus Type 1, Hyperthyroidism, Hypothyroidism GI Medical History: Reports: Gastroesophageal Reflux Disease Denies: Cirrhosis, Crohn's Disease, Hepatitis, Ulcerative Colitis Musculoskeltal Medical History: Reports: Arthritis - Rheumatoid arthritis Psychiatric Medical History: Reports: Depression - intermittent Infectious Medical History: Denies: Clostridium Difficile, Methicillin-Resistant Staph Aureus Past Surgical History Past Surgical History: Reports: Section, Cholecystectomy Social History Information Source: Patient Smoking Status: Current Every Day Smoker Cigarettes Packs Per Day: 1 Frequency of Alcohol Use: None Hx Recreational Drug Use: No Drugs: None Hx Prescription Drug Abuse: No - Advance Directive Resuscitation Status: Full Code Family History Family History: Other - MOTHER - RA Family History: NO FAMILY HX OF IBD Parental Family History Reviewed: Yes Children Family History Reviewed: Yes Sibling(s) Family History Reviewed.: Yes Medication/Allergy Home Medications: Acetaminophen [Tylenol 325 mg Tablet] 650 mg PO Q4HP PRN tablet 01/07/17 Amox Tr/Potassium Clavulanate [Augmentin 875-125 mg Tablet] 1 tab PO BID #20 tablet 01/07/17 Hydrocodone/Acetaminophen [Baker 5-325 mg Tablet] 1 tab PO Q4H #20 tablet Metronidazole [Flagyl 500 mg Tablet] 500 mg PO Q8 #30 tablet 01/07/17 Allergies/Adverse Reactions: methyldopa [From Aldomet] Allergy (Mild, Verified 01/28/17 12:08) egg [Egg] Allergy (Verified 01/28/17 12:08) tramadol HCl [From Ultram] Allergy (Verified 01/28/17 12:08) Review of Systems Constitutional: PRESENT: as per HPI Eyes: ABSENT: visual disturbances Ears: ABSENT: hearing changes Cardiovascular: ABSENT: chest pain, dyspnea on exertion, edema, orthropnea, palpitations Respiratory: ABSENT: cough, hemoptysis Gastrointestinal: PRESENT: as per HPI Genitourinary: ABSENT: dysuria, hematuria Musculoskeletal: ABSENT: joint swelling Integumentary: ABSENT: rash, wounds Neurological: ABSENT: abnormal gait, abnormal speech, confusion, dizziness, focal weakness, syncope Psychiatric: ABSENT: anxiety, depression, homidical ideation, suicidal ideation Endocrine: ABSENT: cold intolerance, heat intolerance, polydipsia, polyuria Hematologic/Lymphatic: ABSENT: easy bleeding, easy bruising Physical Exam Vital Signs: Temp Pulse Resp BP Pulse Ox 98.7 F 126 H 21 H 136/67 H 95 01/28/17 16:14 01/28/17 11:58 01/28/17 13:25 01/28/17 13:25 01/28/17 13:25 Intake & Output 01/27/17 01/28/17 01/29/17 06:59 06:59 06:59 Weight 86.8 kg General appearance: PRESENT: no acute distress - BUT APPEARS ILL, obese, well- developed, well-nourished Head exam: PRESENT: atraumatic, normocephalic Eye exam: PRESENT: EOMI. ABSENT: conjunctival injection, scleral icterus Mouth exam: PRESENT: dry mucosa, other - thick white coat on tongue Throat exam: ABSENT: tonsillar erythema, tonsillar exudate Neck exam: PRESENT: full ROM. ABSENT: lymphadenopathy, tenderness, tracheal deviation Respiratory exam: PRESENT: clear to auscultation miya. ABSENT: accessory muscle use Cardiovascular exam: PRESENT: RRR, tachycardia. ABSENT: systolic murmur Pulses: PRESENT: normal radial pulses, normal dorsalis pedis pul Vascular exam: PRESENT: normal capillary refill GI/Abdominal exam: PRESENT: hypoactive bowel sounds, soft, tenderness - diffuse but seems to localize into LLQ. ABSENT: rebound, rigid Rectal exam: PRESENT: deferred. ABSENT: bloody stool - foul smelling, yellow mucus stool in BSC Extremities exam: ABSENT: calf tenderness, pedal edema Musculoskeletal exam: PRESENT: ambulatory, full ROM Neurological exam: PRESENT: alert, awake, oriented to person, oriented to place , oriented to time, oriented to situation Psychiatric exam: PRESENT: appropriate affect, normal mood Skin exam: PRESENT: warm. ABSENT: dry, rash Results Laboratory Results: 01/28/17 12:59 01/28/17 12:59 01/28/17 01/28/17 01/28/17 12:59 12:59 12:59 WBC 8.7 RBC 5.30 H Hgb 16.2 H Hct 48.9 H MCV 92 MCH 30.6 MCHC 33.2 RDW 15.1 H Plt Count 115 L Seg Neutrophils % 79.7 H Lymphocytes % 7.4 L Monocytes % 12.5 Eosinophils % 0.2 Basophils % 0.2 Absolute Neutrophils 6.9 Absolute Lymphocytes 0.6 Absolute Monocytes 1.1 Absolute Eosinophils 0.0 Absolute Basophils 0.0 VBG pH VBG pCO2 VBG HCO3 VBG Base Excess Sodium 138.3 Potassium 3.6 Chloride 104 Carbon Dioxide 21 L Anion Gap 13 BUN 9 Creatinine 0.77 Est GFR ( Amer) > 60 Est GFR (Non-Af Amer) > 60 Glucose 124 H Lactic Acid 2.3 H Calcium 8.7 Total Bilirubin 1.3 AST 14 ALT 20 Alkaline Phosphatase 49 Total Protein 7.0 Albumin 3.6 Serum HCG, Qual Urine Color Urine Appearance Urine pH Ur Specific Thompson Urine Protein Urine Glucose (UA) Urine Ketones Urine Blood Urine Nitrite Ur Leukocyte Esterase Urine WBC (Auto) Urine RBC (Auto) 01/28/17 01/28/17 01/28/17 12:59 12:59 13:15 WBC RBC Hgb Hct MCV MCH MCHC RDW Plt Count Seg Neutrophils % Lymphocytes % Monocytes % Eosinophils % Basophils % Absolute Neutrophils Absolute Lymphocytes Absolute Monocytes Absolute Eosinophils Absolute Basophils VBG pH 7.38 VBG pCO2 37.8 VBG HCO3 22.0 VBG Base Excess -2.5 Sodium Potassium Chloride Carbon Dioxide Anion Gap BUN Creatinine Est GFR ( Amer) Est GFR (Non-Af Amer) Glucose Lactic Acid Calcium Total Bilirubin AST ALT Alkaline Phosphatase Total Protein Albumin Serum HCG, Qual NEGATIVE Urine Color YELLOW Urine Appearance SLIGHTLY-CLOUDY Urine pH 5.0 Ur Specific Thompson 1.015 Urine Protein NEGATIVE Urine Glucose (UA) NEGATIVE Urine Ketones NEGATIVE Urine Blood NEGATIVE Urine Nitrite NEGATIVE Ur Leukocyte Esterase NEGATIVE Urine WBC (Auto) 2 Urine RBC (Auto) 1 Impressions: Chest X-Ray 01/28/17 12:33 IMPRESSION: FAINT DENSITY IN THE LEFT LOWER LOBE, POSSIBLE EARLY PNEUMONIA. Abdomen/Pelvis CT 01/28/17 15:16 IMPRESSION: 1. Similar findings related to the distal colon. This includes mild pericolonic fat stranding and some wall thickening which looks relatively nonprogressive compared to prior imaging over the past 1.5 months. Does the patient have inflammatory bowel disease such as Crohn's colitis? No evidence of perforation or developing abscess or obstruction. No other acute or suspicious abdominopelvic abnormality. Status: Imported from PACS Assessment & Plan - Diagnosis (1) C. difficile colitis Is this a current diagnosis for this admission?: Yes (2) Oral thrush Is this a current diagnosis for this admission?: Yes (3) Diabetes mellitus type 2 in obese Is this a current diagnosis for this admission?: Yes (4) Hypertension Qualifiers: Hypertension type: essential hypertension Is this a current diagnosis for this admission?: Yes (5) Obesity (BMI 30-39.9) Is this a current diagnosis for this admission?: Yes (6) Rheumatoid arthritis Qualifiers: Rheumatoid arthritis location: unspecified site Rheumatoid factor presence: unspecified presence Qualified Code(s): M06.9 - Rheumatoid arthritis, unspecified Is this a current diagnosis for this admission?: Yes (7) Tobacco dependency Is this a current diagnosis for this admission?: Yes - Time Time Spent: Greater than 70 Minutes Medications reviewed and adjusted accordingly: Yes Anticipated discharge: Home Within: within 72 hours - Inpatient Certification Based on my medical assessment, after consideration of the patient's comorbidities, presenting symptoms, or acuity I expect that the services needed warrant INPATIENT care.: Yes I certify that my determination is in accordance with my understanding of Medicare's requirements for reasonable and necessary INPATIENT services [42 CFR 412.3e].: Yes Medical Necessity: Failure to Improve With Outpatient Therapy, Need Close Monitoring Due to Risk of Patient Decompensation, Need For IV Fluids, Need For Continuous Telemetry Monitoring - Plan Summary Plan Summary: admit to monitored bed, at risk for hemodynamic collapse due to severity of her infection. most likely this latest episode started after clinda given for tooth abscess and has smoldered for several weeks since, suppressed by abx given a couple weeks ago and rapidly flaring since their cessation. start with empiric oral vanc but not sure she will tolerate due to thrush and nausea so rather than wait for failure will proactively treat also with IV flagyl for first couple of days until she declares her ability to tolerate oral intake at which time she can switch to oral flagyl for full 6 wks this time. her hx is a bit suspicious for inflammatory process starting before the cdiff discovered but will be hard to sort out during the acute illness; nevertheless will send stool for WBCs, culture and hemoccult, ck and trend CRP. consult GI for his opinion on all this. will need colonscopy at some point in the near future. she has lost her insurance late last year and has qualifying diagnosis for free clinic, ask daycare director to make referral. ck A1c and cover with SSI as needed. I suspect her diabetes may have advanced also contributing to her weight loss, sweet intolerance, etc. cover the oral thrush with topicall and monitor for response ck and replace her electrolytes. ck TSH
[2017-01-28 18:32] LABS: MAGNESIUM 1.3 mg/dL (1.6-2.3); PHOSPHORUS 3.1 mg/dL (2.5-4.5)
[2017-01-28 18:51] LABS: C-REACTIVE PROTEIN 198.1 mg/L (<10.0)
[2017-01-28] MEDS: METRONIDAZOLE 500 MG/NS RTU 100 ML IV SCH (18:51)
[2017-01-28] MEDS: LACTOBACILLUS ACIDOPHILUS 250 MG TAB PO SCH (18:51)
--- NOTE | 2017-01-28 19:40 | PDOC CONSULTATION ---
Consultation Consult Date: 01/28/17 Attending physician:: MEG CHO Consult reason:: persistent abnormality of CT scan History of Present Illness Admission Date/PCP: 01/28/17 17:43 History of Present Illness: patient is a 41 year old female, recurrent admission for similar problem was seen by Dr Lake about 2 weeks ago patient presents with abdominal pain and persistent abnormal findings on her CT scan she has continued thickening in the area of the descending colon and the sigmoid previous thought to be due to diverticulitis and was started on empiric antibiotics which really did not improve her symptoms was scheduled to have been seen by Dr Lake for outpatient scope patient present again with very similar findings however now she is positive for C.Diff toxin likely due to previous use of antibiotics patient continues to have abnormal findings on her CT scan in the same area there is no abscess, or fluid collection, her CT scan is done without oral or IV contrast this time her CRP was elevated along with her lactic acid differential to include inflammatory bowel disease, vs C.Diff colitis, vs diverticulitis, vs ischemic colitis or even possibly malignancy at some point will need outpatient colonoscopy patient can be followed up by Dr Lake for this since he saw her previously for right now , I would consider conservative therapy she does not have a increased WBC count, however she may benefit from start an orala 5ASA counpound in the meanwhile if she is able to tolerate oral intake would start her oh Flagyl for her C.Diff should hold off on steroid for now until C. Diff is documented to be eradicated and that her O and P along with stool culture are negative for any pathologenic organisms Dr Lake is not available to see this patient . Past Medical History Cardiac Medical History: Reports: Hypertension Denies: Congestive Heart Failure, DVT, Myocardial Infarction, Hyperlipidema, Pulmonary Embolism Pulmonary Medical History: Denies: Asthma, Chronic Obstructive Pulmonary Disease (COPD), Sleep Apnea Neurological Medical History: Denies: Seizures Endocrine Medical History: Reports: Diabetes Mellitus Type 2 - A1c 2016 = 6.7 Denies: Diabetes Mellitus Type 1, Hyperthyroidism, Hypothyroidism GI Medical History: Reports: Gastroesophageal Reflux Disease Denies: Cirrhosis, Crohn's Disease, Hepatitis, Ulcerative Colitis Musculoskeltal Medical History: Reports: Arthritis - Rheumatoid arthritis Psychiatric Medical History: Reports: Depression - intermittent Infectious Medical History: Denies: Clostridium Difficile, Methicillin-Resistant Staph Aureus Past Surgical History Past Surgical History: Reports: Section, Cholecystectomy Social History Smoking Status: Current Every Day Smoker Cigarettes Packs Per Day: 1 Frequency of Alcohol Use: None Hx Recreational Drug Use: No Drugs: None Hx Prescription Drug Abuse: No - Advance Directive Resuscitation Status: Full Code Family History Family History: Other - MOTHER - RA Parental Family History Reviewed: Yes Children Family History Reviewed: Unknown Sibling(s) Family History Reviewed.: Unknown Medication/Allergy Home Medications: Acetaminophen [Tylenol 325 mg Tablet] 650 mg PO Q4HP PRN tablet 01/07/17 Amox Tr/Potassium Clavulanate [Augmentin 875-125 mg Tablet] 1 tab PO BID #20 tablet 01/07/17 Hydrocodone/Acetaminophen [[place]illington 5-325 mg Tablet] 1 tab PO Q4H #20 tablet Metronidazole [Flagyl 500 mg Tablet] 500 mg PO Q8 #30 tablet 01/07/17 Allergies/Adverse Reactions: methyldopa [From Aldomet] Allergy (Mild, Verified 01/28/17 12:08) egg [Egg] Allergy (Verified 01/28/17 12:08) tramadol HCl [From Ultram] Allergy (Verified 01/28/17 12:08) Review of Systems Constitutional: ABSENT: fever(s), headache(s), night sweats, weakness Eyes: ABSENT: visual disturbances Ears: ABSENT: hearing changes Nose, Mouth, and Throat: ABSENT: mouth pain, sore throat Cardiovascular: ABSENT: chest pain, orthropnea, palpitations Respiratory: ABSENT: dyspnea, hemoptysis Gastrointestinal: PRESENT: abdominal pain, nausea, vomiting. ABSENT: diarrhea, hematemesis, melena Genitourinary: ABSENT: dysuria, hematuria Musculoskeletal: ABSENT: deformity, joint swelling Integumentary: ABSENT: lesions, pruritus Neurological: PRESENT: weakness. ABSENT: syncope, tingling, tremor(s), vertigo Psychiatric: PRESENT: anxiety Endocrine: ABSENT: polydipsia, polyphagia, polyuria Hematologic/Lymphatic: ABSENT: easy bruising, lymphadenopathy Physical Exam Vital Signs: Temp Pulse Resp BP Pulse Ox 98.4 F 126 H 23 H 90/69 L 96 01/28/17 18:56 01/28/17 11:58 01/28/17 19:20 01/28/17 19:20 01/28/17 19:20 General appearance: PRESENT: mild distress Head exam: PRESENT: atraumatic, normocephalic Eye exam: PRESENT: EOMI, nystagmus, PERRLA. ABSENT: conjunctival injection, periorbital swelling Mouth exam: PRESENT: moist, neck supple Throat exam: ABSENT: tonsillar exudate Respiratory exam: PRESENT: symmetrical, unlabored. ABSENT: accessory muscle use , chest wall tenderness Cardiovascular exam: PRESENT: RRR, +S1, +S2 GI/Abdominal exam: PRESENT: diminished bowel sounds, tenderness. ABSENT: Lr 's sign, rebound, rigid Gentrourinary exam: ABSENT: lesions Extremities exam: ABSENT: joint swelling Musculoskeletal exam: PRESENT: full ROM Neurological exam: PRESENT: alert, oriented to person, oriented to time, oriented to situation, reflexes normal, CN II-XII grossly intact Skin exam: PRESENT: normal color. ABSENT: mottled, pallor, urticaria, vesicles Results Impressions: Chest X-Ray 01/28/17 12:33 IMPRESSION: FAINT DENSITY IN THE LEFT LOWER LOBE, POSSIBLE EARLY PNEUMONIA. Abdomen/Pelvis CT 01/28/17 15:16 IMPRESSION: 1. Similar findings related to the distal colon. This includes mild pericolonic fat stranding and some wall thickening which looks relatively nonprogressive compared to prior imaging over the past 1.5 months. Does the patient have inflammatory bowel disease such as Crohn's colitis? No evidence of perforation or developing abscess or obstruction. No other acute or suspicious abdominopelvic abnormality. Assessment & Plan - Diagnosis (1) C. difficile colitis Is this a current diagnosis for this admission?: YesPlan: will need to initiate treatment with oral flagyl since this will be the most effective continue for 21 days likely due to previous antibiotics there were used to treat for presumed diverticulitis (2) Colitis Plan: persistent abnormal imaging on her CT scan during this and previous admissions less likely to be diverticulitis ( no appreciable change during her previous admissions) could be due C.Diff colitis ( although she did not have this during her first admission) he CRP is elevated, she likely has IBD- ? Crohn's, she has concurrent RA, ( autoimmune) so, this is most likely the best diagnosis at this point her lactic acid is a little elevated, ? possible ischemic colitis will need out patient colonoscopy at some point would defer to Dr Lake for this since this could already have been arranged for her would start 5 ASA medications, mesalamine to see if this would help hold off on any steroids and all infection has been resolved (3) Nausea & vomiting Qualifiers: Vomiting type: unspecified Vomiting Intractability: non-intractable Qualified Code(s): R11.2 - Nausea with vomiting, unspecified Plan: likely due to multiple antibiotics used in the past antiemetics as needed - Time Time Spent: 50 to 70 Minutes
[2017-01-28] MEDS: NORMAL SALINE 1000 ML 1,000 ML IV PRN (21:18)
[2017-01-28] MEDS: ONDANSETRON HCL INJ/PF 4 MG/2 ML SDV IV PRN (21:20)
[2017-01-28] MEDS: NYSTATIN/DEXAMETH/DIPHEN SUSP 120 ML PO SCH (22:37)
[2017-01-28] MEDS: PANTOPRAZOLE SODIUM 40 MG VIAL IV SCH (22:38)
[2017-01-28] MEDS: ACETAMINOPHEN 325 MG TABLET PO PRN (22:42)
[2017-01-29] MEDS: VANCOMYCIN HCL INJ 500 MG VIAL PO SCH ×4 (01:14→17:18)
[2017-01-29] MEDS: METRONIDAZOLE 500 MG/NS RTU 100 ML IV SCH ×3 (01:16→17:19)
[2017-01-29] MEDS: ACETAMINOPHEN 325 MG TABLET PO PRN ×3 (03:58→22:20)
[2017-01-29] MEDS: NORMAL SALINE 1000 ML 1,000 ML IV PRN ×3 (06:43→22:21)
[2017-01-29 06:44] LABS: HEMATOCRIT 39.6 % (36.0-47.0); HGB HCT DIFFERENCE 0.3; MEAN CORPUSCULAR HEMOGLOBIN 31.2 pg (27.0-33.4); MEAN CORPUSCULAR HGB CONC 33.5 g/dL (32.0-36.0); MEAN CORPUSCULAR VOLUME 93 fl (80-97); RED BLOOD COUNT 4.26 10^6/uL (3.72-5.28); RED CELL DISTRIBUTION WIDTH 14.7 % (11.5-14.0); WHITE BLOOD COUNT 7.2 10^3/uL (4.0-10.5)
[2017-01-29 06:53] LABS: ANION GAP 10 (5-19); BLOOD UREA NITROGEN 11 mg/dL (7-20); CALCIUM 7.7 mg/dL (8.4-10.2); CARBON DIOXIDE 21 mmol/L (22-30); CHLORIDE 109 mmol/L (98-107); CREATININE RESULT 0.73 mg/dL (0.52-1.25); GLUCOSE 87 mg/dL (75-110); MAGNESIUM 1.5 mg/dL (1.6-2.3); POTASSIUM 3.6 mmol/L (3.6-5.0); SODIUM 140.1 mmol/L (137-145)
[2017-01-29 07:03] LABS: HEMOGLOBIN 13.3 g/dL (12.0-15.5)
[2017-01-29 07:06] LABS: BASOPHILS % (MANUAL) 1 % (0-2); EOSINOPHILS % (MANUAL) 4 % (0-6); LYMPHOCYTES % (MANUAL) 21 % (13-45); TOTAL CELLS COUNTED 100
[2017-01-29 07:08] LABS: ANISOCYTOSIS SLIGHT; BAND NEUTROPHILS % (MANUAL) 21 % (3-5); ROULEAUX SLIGHT; TOXIC GRANULATION SLIGHT; TOXIC VACUOLATION PRESENT
[2017-01-29 07:25] LABS: C-REACTIVE PROTEIN 290.2 mg/L (<10.0)
--- NOTE | 2017-01-29 09:49 | EKG REPORT ---
SEVERITY:- BORDERLINE ECG - SINUS TACHYCARDIA PROBABLE LEFT ATRIAL ABNORMALITY BORDERLINE T WAVE ABNORMALITIES : Confirmed by: Marianna Angelo 29-Jan-2017 09:49:10
[2017-01-29] MEDS: LACTOBACILLUS ACIDOPHILUS 250 MG TAB PO SCH ×2 (10:22→17:19)
[2017-01-29] MEDS: PANTOPRAZOLE SODIUM 40 MG VIAL IV SCH ×2 (10:22→22:13)
[2017-01-29] MEDS: NYSTATIN/DEXAMETH/DIPHEN SUSP 120 ML PO SCH ×4 (10:23→22:13)
[2017-01-29] MEDS: MAGNESIUM SULFATE/D5W 1 GM/100 ML RTUPB IV SCH ×3 (11:36→14:00)
--- NOTE | 2017-01-29 12:49 | PDOC PROGRESS REPORT ---
Subjective Progress Note for:: 01/29/17 Subjective:: reason for visit: f/u c diff colitis hospital course: BLU TERAN is a 41 year old female presents to the ED from home with gradual worsening of lower abdominal pain described as cramping, nonradiating, worse just before BM and relieved some by BM but not completely and asct'd with increasing diarrhea of slimy, foul stool without melena/ hematochezia, intermittent nausea, worsening anorexia. she was just admitted 01/06/17 for colitis and similar symptoms though not as intense, treated with augmentin/flagyl finishing both those this past Thursday after which her symptoms began to return. Prior to this in 12/15 she was diagnosed with abscessed tooth, seen in ED and given clindamycin. Prior to that she reports a GI illness in 05/2016 of N/V/D nonbloody and with low grade fevers and chills that ran its course over about a week she thought was just a "viral bug" and didn't seek medical attention but since that time "I just haven't felt right" with loss of appetite, no interest in sweets/desserts or high sugar foods/ drinks she used to crave, #40 unintentional weight loss and early satiety with intermittent heartburn symptoms she treats with occasional OTC antacids. she was seen by dr lozada during her last hospitalization who planned to see her in a few weeks after acute illness cleared for colonoscopy but here she is again. eval in ED shows persistent colitis on exam and imaging, really no better than before but this time a stools was sent and came back +ve for cdiff. we were asked to admit for further eval and management. feels a little bit better but still having BMs and nausea. ROS: still having diffuse abdominal pain, cramping, nonradiating with asct'd nausea but no vomiting; denies fevers/chills (seems to have broken), chest pain , palpitations, melena, hematochezia, total 10 systems reviewed remaining systems negative. Physical Exam Vital Signs: Temp Pulse Resp BP Pulse Ox 98.7 F 92 16 118/66 94 01/29/17 07:35 01/29/17 07:35 01/29/17 07:35 01/29/17 07:35 01/29/17 07:35 Intake & Output 01/28/17 01/29/17 01/30/17 06:59 06:59 06:59 Intake Total 1243 Output Total 0 Balance 1243 Weight 86.8 kg General appearance: PRESENT: mild distress - still appears ill, well-developed, well-nourished Head exam: PRESENT: atraumatic, normocephalic Eye exam: ABSENT: conjunctival injection, scleral icterus Mouth exam: PRESENT: dry mucosa, other - thick white coat on tongue persists Neck exam: PRESENT: full ROM. ABSENT: tenderness Respiratory exam: PRESENT: clear to auscultation miya. ABSENT: accessory muscle use Cardiovascular exam: PRESENT: RRR. ABSENT: systolic murmur Pulses: PRESENT: normal radial pulses, normal dorsalis pedis pul GI/Abdominal exam: PRESENT: hypoactive bowel sounds, soft, tenderness - still localizes to the LLQ Extremities exam: PRESENT: pedal edema. ABSENT: calf tenderness Neurological exam: PRESENT: alert, awake, oriented to person, oriented to place , oriented to time, oriented to situation Psychiatric exam: PRESENT: appropriate affect, normal mood Skin exam: PRESENT: warm. ABSENT: dry Results Laboratory Results: 01/29/17 06:16 01/29/17 06:16 01/29/17 01/29/17 01/29/17 06:16 06:16 06:16 WBC 7.2 RBC 4.26 Hgb 13.3 D Hct 39.6 MCV 93 MCH 31.2 MCHC 33.5 RDW 14.7 H Plt Count 94 L Seg Neutrophils % Not Reportable Lymphocytes % Not Reportable Monocytes % Not Reportable Eosinophils % Not Reportable Basophils % Not Reportable Absolute Neutrophils Not Reportable Absolute Lymphocytes Not Reportable Absolute Monocytes Not Reportable Absolute Eosinophils Not Reportable Absolute Basophils Not Reportable Sodium 140.1 Potassium 3.6 Chloride 109 H Carbon Dioxide 21 L Anion Gap 10 BUN 11 Creatinine 0.73 Est GFR ( Amer) > 60 Est GFR (Non-Af Amer) > 60 Glucose 87 Lactic Acid 1.0 Calcium 7.7 L Magnesium 1.5 L C-Reactive Protein 290.2 H Impressions: Chest X-Ray 01/28/17 12:33 IMPRESSION: FAINT DENSITY IN THE LEFT LOWER LOBE, POSSIBLE EARLY PNEUMONIA. Abdomen/Pelvis CT 01/28/17 15:16 IMPRESSION: 1. Similar findings related to the distal colon. This includes mild pericolonic fat stranding and some wall thickening which looks relatively nonprogressive compared to prior imaging over the past 1.5 months. Does the patient have inflammatory bowel disease such as Crohn's colitis? No evidence of perforation or developing abscess or obstruction. No other acute or suspicious abdominopelvic abnormality. Assessment & Plan - Diagnosis (1) C. difficile colitis Is this a current diagnosis for this admission?: YesPlan: not much better; continue current care, still not able to tolerate oral flagyl (2) Oral thrush Is this a current diagnosis for this admission?: YesPlan: unchanged; continue topical care (3) Diabetes mellitus type 2 in obese Is this a current diagnosis for this admission?: YesPlan: repeat A1c is 5.2 (4) Hypertension Qualifiers: Hypertension type: essential hypertension Is this a current diagnosis for this admission?: YesPlan: hypotensive; continue to hold antiHTN regimen and hydrate (5) Obesity (BMI 30-39.9) Is this a current diagnosis for this admission?: Yes (6) Rheumatoid arthritis Qualifiers: Rheumatoid arthritis location: unspecified site Rheumatoid factor presence: unspecified presence Qualified Code(s): M06.9 - Rheumatoid arthritis, unspecified Is this a current diagnosis for this admission?: Yes (7) Tobacco dependency Is this a current diagnosis for this admission?: Yes (8) LGI bleed Is this a current diagnosis for this admission?: YesPlan: new and likely 2/2 colitis; evidenced by heme +ve stools, H/H dropped due to dilution but will continue to monitor (9) Hypomagnesemia Is this a current diagnosis for this admission?: YesPlan: worse due to GI losses, replace and monitor - Time Time Spent with patient: 25-34 minutes Anticipated discharge: Home Within: within 72 hours - Plan Summary Plan Summary: admit to monitored bed, at risk for hemodynamic collapse due to severity of her infection. most likely this latest episode started after clinda given for tooth abscess and has smoldered for several weeks since, suppressed by abx given a couple weeks ago and rapidly flaring since their cessation. start with empiric oral vanc but not sure she will tolerate due to thrush and nausea so rather than wait for failure will proactively treat also with IV flagyl for first couple of days until she declares her ability to tolerate oral intake at which time she can switch to oral flagyl for full 6 wks this time. her hx is a bit suspicious for inflammatory process starting before the cdiff discovered but will be hard to sort out during the acute illness; stool studies still pending, her CRP is very high and climbing. GI evaluated and recommended 5-ASA if deteriorates much further but no systemic steroids due to infectious possibilities and cdiff.
[2017-01-29 14:46] LABS: PATH REVIEW PATHOLOGIST REVIEWED
[2017-01-30] MEDS: VANCOMYCIN HCL INJ 500 MG VIAL PO SCH ×2 (01:46→06:24)
[2017-01-30] MEDS: METRONIDAZOLE 500 MG/NS RTU 100 ML IV SCH (01:46)
[2017-01-30] MEDS: NORMAL SALINE 1000 ML 1,000 ML IV PRN (06:25)
[2017-01-30 06:31] LABS: ABSOLUTE EOSINOPHILS # (AUTO) 0.2 10^3/uL (0.0-0.6); ABSOLUTE LYMPHOCYTES (AUTO) 1.7 10^3/uL (0.5-4.7); ABSOLUTE MONOCYTES (AUTO) 0.3 10^3/uL (0.1-1.4); ABSOLUTE NEUT (AUTO) 3.6 10^3/uL (1.7-8.2); BASOPHILS % (AUTO) 0.4 % (0-2); EOSINOPHILS % (AUTO) 3.8 % (0-6); HEMATOCRIT 38.9 % (36.0-47.0); HGB HCT DIFFERENCE 0.1; LYMPHOCYTES % (AUTO) 28.8 % (13-45); MEAN CORPUSCULAR HEMOGLOBIN 31.2 pg (27.0-33.4); MEAN CORPUSCULAR HGB CONC 33.5 g/dL (32.0-36.0); MEAN CORPUSCULAR VOLUME 93 fl (80-97); MONOCYTES % (AUTO) 5.6 % (3-13); RED BLOOD COUNT 4.18 10^6/uL (3.72-5.28); RED CELL DISTRIBUTION WIDTH 14.7 % (11.5-14.0); SEGMENTED NEUTROPHILS % (AUTO) 61.4 % (42-78); WHITE BLOOD COUNT 5.8 10^3/uL (4.0-10.5)
[2017-01-30 06:55] LABS: ANION GAP 8 (5-19); BLOOD UREA NITROGEN 7 mg/dL (7-20); CARBON DIOXIDE 23 mmol/L (22-30); CHLORIDE 111 mmol/L (98-107); CREATININE RESULT 0.65 mg/dL (0.52-1.25); GLUCOSE 82 mg/dL (75-110); MAGNESIUM 2.2 mg/dL (1.6-2.3); POTASSIUM 3.5 mmol/L (3.6-5.0); SODIUM 141.9 mmol/L (137-145)
[2017-01-30 07:16] LABS: C-REACTIVE PROTEIN 176.6 mg/L (<10.0)
[2017-01-30] MEDS: ACETAMINOPHEN 325 MG TABLET PO PRN ×2 (08:38→23:21)
[2017-01-30] MEDS: ONDANSETRON HCL INJ/PF 4 MG/2 ML SDV IV PRN (08:39)
[2017-01-30] MEDS: LACTOBACILLUS ACIDOPHILUS 250 MG TAB PO SCH ×2 (10:20→18:09)
[2017-01-30] MEDS: NYSTATIN/DEXAMETH/DIPHEN SUSP 120 ML PO SCH ×4 (10:21→21:34)
[2017-01-30] MEDS: PANTOPRAZOLE SODIUM 40 MG VIAL IV SCH ×2 (10:21→21:33)
--- NOTE | 2017-01-30 14:25 | PDOC PROGRESS REPORT ---
Subjective Progress Note for:: 01/30/17 Subjective:: reason for visit: f/u c diff colitis hospital course: BLU TERAN is a 41 year old female presents to the ED from home with gradual worsening of lower abdominal pain described as cramping, nonradiating, worse just before BM and relieved some by BM but not completely and asct'd with increasing diarrhea of slimy, foul stool without melena/ hematochezia, intermittent nausea, worsening anorexia. she was just admitted 01/06/17 for colitis and similar symptoms though not as intense, treated with augmentin/flagyl finishing both those this past Thursday after which her symptoms began to return. Prior to this in 12/15 she was diagnosed with abscessed tooth, seen in ED and given clindamycin. Prior to that she reports a GI illness in 05/2016 of N/V/D nonbloody and with low grade fevers and chills that ran its course over about a week she thought was just a "viral bug" and didn't seek medical attention but since that time "I just haven't felt right" with loss of appetite, no interest in sweets/desserts or high sugar foods/ drinks she used to crave, #40 unintentional weight loss and early satiety with intermittent heartburn symptoms she treats with occasional OTC antacids. she was seen by dr lozada during her last hospitalization who planned to see her in a few weeks after acute illness cleared for colonoscopy but here she is again. eval in ED shows persistent colitis on exam and imaging, really no better than before but this time a stools was sent and came back +ve for cdiff. we were asked to admit for further eval and management. feels a little bit better but still having loose BMs and nausea but overall is improved. ROS: still having abdominal pain, cramping, nonradiating with asct'd nausea but no vomiting; denies fevers/chills, chest pain, palpitations, melena, hematochezia, total 10 systems reviewed remaining systems negative. Physical Exam Vital Signs: Temp Pulse Resp BP Pulse Ox 98.2 F 68 18 130/82 H 99 01/30/17 11:33 01/30/17 14:00 01/30/17 11:33 01/30/17 11:33 01/30/17 11:33 Intake & Output 01/29/17 01/30/17 01/31/17 06:59 06:59 06:59 Intake Total 1243 4488 118 Output Total 0 250 Balance 1243 4217 118 Weight 86.8 kg 91.6 kg General appearance: PRESENT: no acute distress, obese, well-developed, well- nourished Head exam: PRESENT: atraumatic, normocephalic Eye exam: ABSENT: conjunctival injection, scleral icterus Mouth exam: PRESENT: moist Neck exam: PRESENT: full ROM. ABSENT: tenderness Respiratory exam: PRESENT: clear to auscultation miya. ABSENT: accessory muscle use Cardiovascular exam: PRESENT: RRR. ABSENT: systolic murmur GI/Abdominal exam: PRESENT: normal bowel sounds, soft, tenderness - station tender in LLQ but diffuse tenderness resolving Extremities exam: ABSENT: calf tenderness, pedal edema Musculoskeletal exam: PRESENT: ambulatory, full ROM Neurological exam: PRESENT: alert, awake, oriented to person, oriented to place , oriented to time, oriented to situation Psychiatric exam: PRESENT: appropriate affect, normal mood Skin exam: PRESENT: warm. ABSENT: dry Results Laboratory Results: 01/30/17 05:12 01/30/17 05:12 01/29/17 01/30/17 01/30/17 06:16 05:12 05:12 WBC 7.2 5.8 RBC 4.26 4.18 Hgb 13.3 D 13.0 Hct 39.6 38.9 MCV 93 93 MCH 31.2 31.2 MCHC 33.5 33.5 RDW 14.7 H 14.7 H Plt Count 94 L 98 L Seg Neutrophils % 61.4 Lymphocytes % 28.8 Monocytes % 5.6 Eosinophils % 3.8 Basophils % 0.4 Absolute Neutrophils 3.6 Absolute Lymphocytes 1.7 Absolute Monocytes 0.3 Absolute Eosinophils 0.2 Absolute Basophils 0.0 Sodium 141.9 Potassium 3.5 L Chloride 111 H Carbon Dioxide 23 Anion Gap 8 BUN 7 Creatinine 0.65 Est GFR ( Amer) > 60 Est GFR (Non-Af Amer) > 60 Glucose 82 Calcium 8.0 L Magnesium 2.2 C-Reactive Protein 176.6 H Impressions: Chest X-Ray 01/28/17 12:33 IMPRESSION: FAINT DENSITY IN THE LEFT LOWER LOBE, POSSIBLE EARLY PNEUMONIA. Abdomen/Pelvis CT 01/28/17 15:16 IMPRESSION: 1. Similar findings related to the distal colon. This includes mild pericolonic fat stranding and some wall thickening which looks relatively nonprogressive compared to prior imaging over the past 1.5 months. Does the patient have inflammatory bowel disease such as Crohn's colitis? No evidence of perforation or developing abscess or obstruction. No other acute or suspicious abdominopelvic abnormality. Assessment & Plan - Diagnosis (1) C. difficile colitis Is this a current diagnosis for this admission?: YesPlan: improving; switch to oral flagyl, d/c vanc. advance diet as kirstin (2) Oral thrush Is this a current diagnosis for this admission?: YesPlan: unchanged; continue topical care (3) Diabetes mellitus type 2 in obese Is this a current diagnosis for this admission?: Yes (4) Hypertension Qualifiers: Hypertension type: essential hypertension Is this a current diagnosis for this admission?: YesPlan: improved; add regimen back in as needed (5) Obesity (BMI 30-39.9) Is this a current diagnosis for this admission?: Yes (6) Rheumatoid arthritis Qualifiers: Rheumatoid arthritis location: unspecified site Rheumatoid factor presence: unspecified presence Qualified Code(s): M06.9 - Rheumatoid arthritis, unspecified Is this a current diagnosis for this admission?: Yes (7) Tobacco dependency Is this a current diagnosis for this admission?: Yes (8) LGI bleed Is this a current diagnosis for this admission?: Yes (9) Hypomagnesemia Is this a current diagnosis for this admission?: YesPlan: resolved with replacement - Time Time Spent with patient: 25-34 minutes Medications reviewed and adjusted accordingly: Yes Anticipated discharge: Home Within: within 24 hours
[2017-01-31 05:24] LABS: ANION GAP 9 (5-19); BLOOD UREA NITROGEN 8 mg/dL (7-20); CALCIUM 8.3 mg/dL (8.4-10.2); CARBON DIOXIDE 21 mmol/L (22-30); CHLORIDE 111 mmol/L (98-107); CREATININE RESULT 0.62 mg/dL (0.52-1.25); GLUCOSE 82 mg/dL (75-110); POTASSIUM 3.7 mmol/L (3.6-5.0); SODIUM 140.5 mmol/L (137-145)
[2017-01-31 05:40] LABS: ABSOLUTE BASOPHILS # (AUTO) 0.1 10^3/uL (0.0-0.2); ABSOLUTE EOSINOPHILS # (AUTO) 0.2 10^3/uL (0.0-0.6); ABSOLUTE MONOCYTES (AUTO) 0.3 10^3/uL (0.1-1.4); ABSOLUTE NEUT (AUTO) 2.8 10^3/uL (1.7-8.2); EOSINOPHILS % (AUTO) 2.9 % (0-6); HEMATOCRIT 39.2 % (36.0-47.0); HGB HCT DIFFERENCE -0.2; MEAN CORPUSCULAR HEMOGLOBIN 30.6 pg (27.0-33.4); MEAN CORPUSCULAR HGB CONC 33.2 g/dL (32.0-36.0); MEAN CORPUSCULAR VOLUME 92 fl (80-97); MONOCYTES % (AUTO) 5.3 % (3-13); RED BLOOD COUNT 4.26 10^6/uL (3.72-5.28); RED CELL DISTRIBUTION WIDTH 14.5 % (11.5-14.0); SEGMENTED NEUTROPHILS % (AUTO) 52.8 % (42-78); WHITE BLOOD COUNT 5.4 10^3/uL (4.0-10.5)
[2017-01-31 08:16] VITALS: BP 151/82
[2017-01-31] MEDS: PANTOPRAZOLE SODIUM 40 MG VIAL IV SCH (09:46)
[2017-01-31] MEDS: LACTOBACILLUS ACIDOPHILUS 250 MG TAB PO SCH (09:46)
[2017-01-31] MEDS: NYSTATIN/DEXAMETH/DIPHEN SUSP 120 ML PO SCH (09:47)
[2017-01-31] MEDS ORDERED: METRONIDAZOLE 500 MG TABLET PO SCH (14:00)
--- NOTE | 2017-01-31 14:08 | PDOC DISCHARGE SUMMARY ---
General - Admit/Disc Date/PCP Admission Date/Primary Care Provider: 01/28/17 17:43 Discharge Date: 01/31/17 - Discharge Diagnosis (1) C. difficile colitis Is this a current diagnosis for this admission?: YesSummary: continue 6wks of flagyl, probiotics; f/u dr lozada in one month for cscope (2) Oral thrush Is this a current diagnosis for this admission?: YesSummary: resolved (3) Diabetes mellitus type 2 in obese Is this a current diagnosis for this admission?: Yes (4) Hypertension Is this a current diagnosis for this admission?: Yes (5) Obesity (BMI 30-39.9) Is this a current diagnosis for this admission?: Yes (6) Rheumatoid arthritis Is this a current diagnosis for this admission?: Yes (7) Tobacco dependency Is this a current diagnosis for this admission?: Yes (8) LGI bleed Is this a current diagnosis for this admission?: YesSummary: 2/2 colitis, stable - Additional Information Resuscitation Status: Full Code Discharge Diet: As Tolerated Discharge Activity: Activity As Tolerated Home Medications: Lactobacillus Acidophilus [Acidophilus Lactobacilli] 1 each PO BID #100 capsule 01/31/17 Metronidazole [Flagyl] 500 mg PO TID #120 tablet 01/31/17 Promethazine HCl [Phenergan 25 mg Tablet] 25 mg PO Q6HP PRN #20 tablet 01/31/17 History of Present Illness Patient complains of: abd pain, fevers History of Present Illness: hospital course: BLU TERAN is a 41 year old female presents to the ED from home with gradual worsening of lower abdominal pain described as cramping, nonradiating, worse just before BM and relieved some by BM but not completely and asct'd with increasing diarrhea of slimy, foul stool without melena/ hematochezia, intermittent nausea, worsening anorexia. Hospital Course Hospital Course: she was just admitted 01/06/17 for colitis and similar symptoms though not as intense, treated with augmentin/flagyl finishing both those this past Thursday after which her symptoms began to return. Prior to this in 12/15 she was diagnosed with abscessed tooth, seen in ED and given clindamycin. Prior to that she reports a GI illness in 05/2016 of N/V/D nonbloody and with low grade fevers and chills that ran its course over about a week she thought was just a "viral bug" and didn't seek medical attention but since that time "I just haven' t felt right" with loss of appetite, no interest in sweets/desserts or high sugar foods/drinks she used to crave, #40 unintentional weight loss and early satiety with intermittent heartburn symptoms she treats with occasional OTC antacids. she was seen by dr lozada during her last hospitalization who planned to see her in a few weeks after acute illness cleared for colonoscopy but here she is again. eval in ED shows persistent colitis on exam and imaging, really no better than before but this time a stools was sent and came back +ve for cdiff. we were asked to admit for further eval and management. feels a little bit better but still having loose BMs and nausea but overall is improved. she is tolerating regular diet without difficulty and is ready for d/ ch ome, stable for d/c home Physical Exam Vital Signs: Temp Pulse Resp BP Pulse Ox 97.9 F 71 16 151/82 H 99 01/31/17 10:50 01/31/17 10:50 01/31/17 10:50 01/31/17 10:50 01/31/17 10:50 Intake & Output 01/30/17 01/31/17 02/01/17 06:59 06:59 06:59 Intake Total 4467 2225 Output Total 250 Balance 4217 2225 Weight 91.6 kg 92.6 kg General appearance: PRESENT: no acute distress, well-developed, other Head exam: PRESENT: atraumatic, normocephalic Eye exam: ABSENT: conjunctival injection, scleral icterus Mouth exam: PRESENT: moist, neck supple Respiratory exam: PRESENT: clear to auscultation miya. ABSENT: accessory muscle use Cardiovascular exam: PRESENT: RRR. ABSENT: systolic murmur Pulses: PRESENT: normal radial pulses, normal dorsalis pedis pul GI/Abdominal exam: PRESENT: hyperactive bowel sounds, soft, tenderness - improving LLQ tenderness Extremities exam: ABSENT: calf tenderness, pedal edema Musculoskeletal exam: PRESENT: ambulatory, full ROM Neurological exam: PRESENT: alert, awake, oriented to person, oriented to place , oriented to time Psychiatric exam: PRESENT: appropriate affect, normal mood Skin exam: PRESENT: warm. ABSENT: dry Results Laboratory Results: 01/31/17 04:36 01/31/17 04:36 01/31/17 01/31/17 04:36 04:36 WBC 5.4 RBC 4.26 Hgb 13.0 Hct 39.2 MCV 92 MCH 30.6 MCHC 33.2 RDW 14.5 H Plt Count 86 L Seg Neutrophils % 52.8 Lymphocytes % 38.0 Monocytes % 5.3 Eosinophils % 2.9 Basophils % 1.0 Absolute Neutrophils 2.8 Absolute Lymphocytes 2.0 Absolute Monocytes 0.3 Absolute Eosinophils 0.2 Absolute Basophils 0.1 Sodium 140.5 Potassium 3.7 Chloride 111 H Carbon Dioxide 21 L Anion Gap 9 BUN 8 Creatinine 0.62 Est GFR ( Amer) > 60 Est GFR (Non-Af Amer) > 60 Glucose 82 Calcium 8.3 L Impressions: Chest X-Ray 01/28/17 12:33 IMPRESSION: FAINT DENSITY IN THE LEFT LOWER LOBE, POSSIBLE EARLY PNEUMONIA. Abdomen/Pelvis CT 01/28/17 15:16 IMPRESSION: 1. Similar findings related to the distal colon. This includes mild pericolonic fat stranding and some wall thickening which looks relatively nonprogressive compared to prior imaging over the past 1.5 months. Does the patient have inflammatory bowel disease such as Crohn's colitis? No evidence of perforation or developing abscess or obstruction. No other acute or suspicious abdominopelvic abnormality. Qualifiers PATEINT BEING DISCHARGED WITH ANY OF THE FOLLOWING DIAGNOSIS?: No VTE patient discharged on overlapping Therapy?: No Reason(s) for not prescribing Overlap Therapy:: Not indicated Plan Discharge Plan: d/c home on long [facility] of [facility]; fu GI in one month Time Spent: Greater than 30 Minutes
== END 2017-01-31 11:28 | disposition home or self-care (01) | DRG 372 ==
LOC: ER 11:41 → EH 17:43 → UNDOADMIN 17:54 → EH 17:54 → 3W 20:24
DX: A04.7 Enterocolitis due to Clostridium difficile (principal); B37.0 Candidal stomatitis; K92.2 Gastrointestinal hemorrhage, unspecified; I10 Essential (primary) hypertension; M06.9 Rheumatoid arthritis, unspecified; E66.9 Obesity, unspecified; E83.42 Hypomagnesemia; F32.9 Major depressive disorder, single episode, unspecified; F17.210 Nicotine dependence, cigarettes, uncomplicated; E11.9 Type 2 diabetes mellitus without complications; Z90.49 Acquired absence of other specified parts of digestive tract; Z91.012 Allergy to eggs; Z91.09 Other allergy status, other than to drugs and biological substances
CPT/HCPCS: 36415; 71010; 74176; 80048; 80053; 81001; 82272; 82803; 82962; 83036; 83605; 83735; 84100; 84443; 84703; 85025; 85610; 86140; 87040; 87045; 87086; 87205; 87493; 93005; 93010; 96361; 96365; 99285; J0696; J2405; J3370; J3475; J3490; J7030; S0164

== ENCOUNTER → 2017-05-26 | Outpatient (CLI) | payer MEDICAID, OTHER ==
[2017-05-26 12:45] LABS: ABSOLUTE EOSINOPHILS # (AUTO) 0.1 10^3/uL (0.0-0.6); ABSOLUTE LYMPHOCYTES (AUTO) 2.2 10^3/uL (0.5-4.7); ABSOLUTE MONOCYTES (AUTO) 0.5 10^3/uL (0.1-1.4); ABSOLUTE NEUT (AUTO) 4.7 10^3/uL (1.7-8.2); BASOPHILS % (AUTO) 0.6 % (0-2); EOSINOPHILS % (AUTO) 1.7 % (0-6); HEMATOCRIT 44.1 % (36.0-47.0); HEMOGLOBIN 15.6 g/dL (12.0-15.5); HGB HCT DIFFERENCE 2.7; LYMPHOCYTES % (AUTO) 28.9 % (13-45); MEAN CORPUSCULAR HGB CONC 35.5 g/dL (32.0-36.0); MEAN CORPUSCULAR VOLUME 93 fl (80-97); MONOCYTES % (AUTO) 6.2 % (3-13); RED BLOOD COUNT 4.73 10^6/uL (3.72-5.28); RED CELL DISTRIBUTION WIDTH 13.5 % (11.5-14.0); SEGMENTED NEUTROPHILS % (AUTO) 62.6 % (42-78); WHITE BLOOD COUNT 7.5 10^3/uL (4.0-10.5)
[2017-05-26 13:04] LABS: ALANINE AMINOTRANSFERASE 24 U/L (9-52); ALBUMIN 3.7 g/dL (3.5-5.0); ALKALINE PHOSPHATASE 55 U/L (38-126); ANION GAP 9 (5-19); ASPARTATE AMINO TRANSFERASE 13 U/L (14-36); BILIRUBIN,DIRECT 0.5 mg/dL (0.0-0.4); BILIRUBIN,TOTAL 0.5 mg/dL (0.2-1.3); BLOOD UREA NITROGEN 12 mg/dL (7-20); CALCIUM 9.1 mg/dL (8.4-10.2); CARBON DIOXIDE 28 mmol/L (22-30); CHLORIDE 107 mmol/L (98-107); CREATININE RESULT 0.63 mg/dL (0.52-1.25); GLUCOSE 97 mg/dL (75-110); POTASSIUM 4.1 mmol/L (3.6-5.0); SODIUM 143.5 mmol/L (137-145); TOTAL PROTEIN 6.8 g/dL (6.3-8.2)
== END ==
LOC: OD 11:41
PROVIDERS: ATTEND Orthopaedic Surgery Hand Surgery
DX: Z11.2 Encounter for screening for other bacterial diseases (principal); D48.1 Neoplasm of uncertain behavior of connective and other soft tissue; M06.9 Rheumatoid arthritis, unspecified
CPT/HCPCS: 36415; 80053; 85025; 87070

== ENCOUNTER 2018-08-28 09:01 | Inpatient (IN) | payer BC, MEDICAID ==
[2018-08-28] MEDS ORDERED: ASPIRIN 81 MG TABLET, CHEWABLE PO ONE (09:25)
[2018-08-28] MEDS ORDERED: FUROSEMIDE INJ/PF 40 MG/4 ML SDV IV ONE (09:41)
--- NOTE | 2018-08-28 09:42 | ER Document Report ---
ED Cardiac - General Chief Complaint: Chest Pressure Stated Complaint: CHEST PRESSURE, SHORTNESS OF BREATH Time Seen by Provider: 08/28/18 09:29 Notes: 43-year-old female presents to the emergency department complaining of difficulty breathing. She stated for the last 2 days has been having more more difficulty breathing. She has been enjoying the holidays eating [employer] and other holiday offerings. She was diagnosed with hypertension in the past. However she had lost weight and it taken off her blood pressure medicines. However she has gained a lot of that weight back. She has noticed some swelling of her feet and hands. She denies any calf pain. Denies any black bloody or tarry stools. Complains of some pressure on her chest. Worse when she is laying flat. Dyspnea is worse on exertion. This morning she stated she had a lot of discomfort laying flat but felt better sitting up. She presents here for further evaluation and treatment. TRAVEL OUTSIDE OF THE [place] IN LAST 30 DAYS: No - Related Data Allergies/Adverse Reactions: methyldopa [From Aldomet] Allergy (Mild, Verified 08/28/18 09:03) egg [Egg] Allergy (Verified 08/28/18 09:03) tramadol HCl [From Ultram] Allergy (Verified 08/28/18 09:03) clindamycin Adverse Reaction (Mild, Verified 08/28/18 09:03) C-Difficile reaction Past Medical History - Social History Smoking Status: Unknown if Ever Smoked Family History: Arthritis, CVA, Hypertension, Other - MOTHER - RA, hepatitis, hypertension - Past Medical History Cardiac Medical History: Reports: Hx Hypertension Denies: Hx Congestive Heart Failure, Hx DVT, Hx Heart Attack, Hx Hypercholesterolemia, Hx Pulmonary Embolism Pulmonary Medical History: Denies: Hx Asthma, Hx COPD, Hx Sleep Apnea Neurological Medical History: Denies: Hx Seizures Endocrine Medical History: Reports: Hx Diabetes Mellitus Type 2. Denies: Hx Di abetes Mellitus Type 1, Hx Hyperthyroidism, Hx Hypothyroidism Renal/ Medical History: Denies: Hx Peritoneal Dialysis GI Medical History: Reports: Hx Gastroesophageal Reflux Disease. Denies: Hx Cirrhosis, Hx Crohn's Disease, Hx Hepatitis, Hx Ulcerative Colitis Musculoskeletal Medical History: Reports Hx Arthritis - Rheumatoid arthritis on [employer] Psychiatric Medical History: Reports: Hx Depression Infectious Medical History: Reports: Hx C-Diff. Denies: Hx Hepatitis, Hx MRSA Past Surgical History: Reports: Hx Section, Hx Cholecystectomy, Hx Oral Surgery, Hx Orthopedic Surgery - Rheumatic nodule removal - Immunizations Hx Diphtheria, Pertussis, Tetanus Vaccination: Yes Review of Systems - Review of Systems Constitutional: denies: Chills, Fever Cardiovascular: Chest pain, Orthopnea, Dyspnea, Edema Respiratory: Cough, Short of breath. denies: Hemoptysis, Wheezing Gastrointestinal: denies: Abdominal pain, Nausea, Vomiting Genitourinary: denies: Dysuria, Hematuria Neurological/Psychological: denies: Headaches -: Yes All other systems reviewed and negative Physical Exam - Vital signs Vitals: Temp Pulse Resp BP Pulse Ox 97.4 F 110 H 32 H 157/113 H 86 L 08/28/18 09:18 08/28/18 09:18 08/28/18 09:18 08/28/18 09:18 08/28/18 09:18 - Notes Notes: GENERAL_APPEARANCE: well_nourished, alert, cooperative VITALS: reviewed, see vital signs table. HEAD: no_swelling\tenderness on the head. EYES: PERRL, EOMI, conjunctiva_clear. NOSE: no_nasal_discharge. MOUTH: (-)decreased moisture. THROAT: no_tonsilar_inflammation, no_airway_obstruction. no_lymphadenopathy NECK: supple, no_neck_tenderness, (-)thyromegaly. BACK: no_back_tenderness. CHEST_WALL: no_chest_tenderness. LUNGS: no_wheezing, bibasilar crackles, no_rhonchi, (-)accessory muscle use, good air exchange bilateral. HEART: normal_rate, normal_rhythm, normal_S1, normal_S2, (-)S3, (-)S4, no_murmur, no_rub. ABDOMEN: normal_BS, soft, no_abd_tenderness, (-)guarding, (-)rebound, n o_organomegaly, no_abd_masses. EXTREMITIES: Negative calf pain bilateral, good pulses in all_extremities, no_swelling\tenderness in the extremities, 1 +_edema. SKIN: warm, dry, good_color, no_rash. MENTAL_STATUS: speech_clear, oriented_X_3, normal_affect, responds_appropriately to questions. Course - Re-evaluation Re-evalutation: 12/29/18 09:40 Patient presents with difficulty breathing orthopnea. The patient has been e njoying a lot of the holiday meals. He has been high in sodium ham and other holiday offerings. Patient has noticed some edema in her hands and feet. She is supposed to be taking blood pressure medicines but was stopped when she had lost weight about a year ago. She has gained a lot of that back. Patient has some fine crackles in the bases. She is hypertensive. She is likely having some mild fluid overload due to increased sodium intake mild congestive failure. Check labs x-ray and BNP. We will place the patient back on blood pressure medication and low-dose diuretic. 08/28/18 12:18 The patient's blood pressures continues to be elevated she is received 40 of Lasix. I am going to give her 0.625 of Vasotec IV and start a nitroglycerin drip which should help her blood pressure. The patient clinically sounds what has CHF on the chest x-ray has elevated BNP. Repeated EKG again showing no signs of any ischemia. Troponin was 0.041. We will get a repeat troponin. I spoke with hospitalist service who agreed to admit the patient for CHF exacerbation. - Vital Signs Vital signs: Temp Pulse Resp BP Pulse Ox 97.8 F 110 H 12 180/118 H 98 08/28/18 10:40 08/28/18 09:18 08/28/18 12:01 08/28/18 12:00 08/28/18 12:01 - Laboratory Result Diagrams: 08/28/18 09:28 08/28/18 09:28 Laboratory results interpreted by me: 08/28/18 08/28/18 09:28 09:28 Glucose 241 H NT-Pro-B Natriuret Pep 642 H - Diagnostic Test Radiology reviewed: Reports reviewed Radiology results interpreted by me: 08/28/18 12:18 Chest X-Ray 08/28/18 00:00 IMPRESSION: CHF versus viral/atypical infection. Difficult to determine. Clinical correlation is needed. Discharge - Discharge Clinical Impression: Acute exacerbation of CHF (congestive heart failure) Qualifiers: Heart failure type: systolic Qualified Code(s): I50.23 - Acute on chronic systolic (congestive) heart failure Condition: Fair Disposition: ADMITTED INPATIENT Admitting Provider: Hospitalist Unit Admitted: IMCU Referrals: WES GARIBAY PA-C [NO LOCAL MD] - Follow up as needed
[2018-08-28 10:03] LABS: ALANINE AMINOTRANSFERASE 21 U/L (9-52); ALBUMIN 3.7 g/dL (3.5-5.0); ALKALINE PHOSPHATASE 72 U/L (38-126); ANION GAP 11 (5-19); ASPARTATE AMINO TRANSFERASE 22 U/L (14-36); BILIRUBIN,DIRECT 0.3 mg/dL (0.0-0.4); BILIRUBIN,TOTAL 0.7 mg/dL (0.2-1.3); BLOOD UREA NITROGEN 13 mg/dL (7-20); CALCIUM 8.9 mg/dL (8.4-10.2); CARBON DIOXIDE 24 mmol/L (22-30); CHLORIDE 104 mmol/L (98-107); CREATINE KINASE 48 U/L (30-135); GLUCOSE 241 mg/dL (75-110); POTASSIUM 3.7 mmol/L (3.6-5.0); SODIUM 138.9 mmol/L (137-145)
[2018-08-28 10:16] LABS: CREATINE KINASE MB 0.95 ng/mL (<4.55)
[2018-08-28 10:18] LABS: TROPONIN I 0.041 ng/mL
--- NOTE | 2018-08-28 10:25 | RADIOLOGY REPORT (SQ) ---
EXAM DESCRIPTION: CHEST 2 VIEWS COMPLETED DATE/TIME: 08/28/2018 10:16 am REASON FOR STUDY: chest pressure COMPARISON: 11/23/2016 NUMBER OF VIEWS: Two views. TECHNIQUE: Frontal and lateral radiographic views of the chest acquired. LIMITATIONS: None. FINDINGS: LUNGS AND PLEURA: Diffuse interstitial pattern with more confluent density in the lower dax ngs, right greater than left. No large effusions. MEDIASTINUM AND HILAR STRUCTURES: No masses or contour abnormality. HEART AND VASCULAR STRUCTURES: Cardiac enlargement. Vascular congestion. BONES: No acute findings. HARDWARE: None in the chest. OTHER: No other significant finding. IMPRESSION: CHF versus viral/atypical infection. Difficult to determine. Clinical correlation is n eeded. TECHNICAL DOCUMENTATION: JOB ID: [id number] [employer]- All Rights Reserved Reading location - IP/workstation name: [email or web address]
[2018-08-28 10:27] LABS: ABSOLUTE EOSINOPHILS # (AUTO) 0.1 10^3/uL (0.0-0.6); ABSOLUTE LYMPHOCYTES (AUTO) 1.8 10^3/uL (0.5-4.7); ABSOLUTE MONOCYTES (AUTO) 0.3 10^3/uL (0.1-1.4); ABSOLUTE NEUT (AUTO) 3.3 10^3/uL (1.7-8.2); BASOPHILS % (AUTO) 0.8 % (0-2); EOSINOPHILS % (AUTO) 1.9 % (0-6); HEMATOCRIT 42.1 % (36.0-47.0); HEMOGLOBIN 14.6 g/dL (12.0-15.5); LYMPHOCYTES % (AUTO) 32.8 % (13-45); MEAN CORPUSCULAR HEMOGLOBIN 30.8 pg (27.0-33.4); MEAN CORPUSCULAR HGB CONC 34.8 g/dL (32.0-36.0); MEAN CORPUSCULAR VOLUME 89 fl (80-97); MONOCYTES % (AUTO) 5.3 % (3-13); PLATELET COUNT 180 10^3/uL (150-450); RED BLOOD COUNT 4.76 10^6/uL (3.72-5.28); RED CELL DISTRIBUTION WIDTH 13.9 % (11.5-14.0); SEGMENTED NEUTROPHILS % (AUTO) 59.2 % (42-78); TOTAL CELLS COUNTED % (AUTO) 100 %; WHITE BLOOD COUNT 5.6 10^3/uL (4.0-10.5)
[2018-08-28] MEDS ORDERED: NITROGLYCERIN/D5W 50 MG/250 ML RTUINJ IV PRN (12:10)
[2018-08-28] MEDS ORDERED: ENALAPRILAT DIHYDRATE INJ/PF 1.25 MG/1 ML SDV IV ONE (12:11)
--- NOTE | 2018-08-28 12:51 | EKG REPORT ---
SEVERITY:- BORDERLINE ECG - SINUS TACHYCARDIA BORDERLINE T WAVE ABNORMALITIES : Confirmed by: Marianna Angelo 28-Aug-2018 12:50:49
--- NOTE | 2018-08-28 12:52 | EKG REPORT ---
SEVERITY:- BORDERLINE ECG - SINUS TACHYCARDIA BORDERLINE T WAVE ABNORMALITIES : Confirmed by: Marianna Angelo 28-Aug-2018 12:50:53
[2018-08-28] MEDS ORDERED: ONDANSETRON 4 MG TAB.RAPDIS PO PRN (15:22)
[2018-08-28] MEDS ORDERED: MAGNESIUM HYDROXIDE SUSP 30 ML UDCUP PO PRN (15:22)
[2018-08-28] MEDS ORDERED: DEXTROSE 50%-WATER 25 GM/50 ML DISP.SYRIN IV PRN ×2 (15:30)
[2018-08-28] MEDS ORDERED: GLUCAGON,HUMAN RECOMB 1 MG INJ IM PRN (15:30)
[2018-08-28] MEDS ORDERED: DEXTROSE 40% GEL 15 GM TUBE PO PRN ×2 (15:30)
--- NOTE | 2018-08-28 16:48 | PDOC H&P ---
History of Present Illness Admission Date/PCP: 08/28/18 12:39 Patient complains of: SOB/CRUZ History of Present Illness: BLU TERAN is a 43 year old female with a past medical history of hypertension, PTSD, bipolar, diabetes, rheumatoid arthritis, osteoarthritis, C. difficile, morbid obesity (BMI 37.8), former smoker with a 45 pack/year history. Quit smoking fall 2016. Ms. Teran reports ongoing shortness of breath over the past few days that became acutely worse last night around midnight she was trying to sleep. She reports her heart was racing, and possible palpitations. She endorses symptoms of 3 pillow orthopnea, possible PND, and symptoms consistent with KRISTIAN. She reports sleeping best when upright in the recliner. Over the last 24 hours she has had intermittent periods of hot sweats. But she also reports having these hot sweats over the preceding few months. She reports her last menstrual period was 1 year ago. She believes she is going through menopause. She reported some chest discomfort and/or tightness in the center of her chest. She had dinner last night at [facility]. She has had dyspnea on exertion over the past few months. She also reports intermittent nausea over the past few weeks. During the same time. She also reports taking Aleve PM to help with sleep. Patient reports being noncompliant with medications due to financial difficulties. She last had an echocardiogram 2 years ago, and reported not having heart failure at that time. She was previously on lisinopril for hypertension, but has been off of it for some time now. She also reports of being off metformin for an extended period of time now. She was also on Enbrel for rheumatoid arthritis up until the past 1-2 months. Currently she is resting comfortably in her room on 2-3 L of oxygen. She speaks in full sentences. She does not appear to be in any distress. She reports her breathing is much improved since arriving at the hospital. She denies current chest pain, shortness of breath, fever, chills, sick contacts. Past Medical History Cardiac Medical History: Reports: Hypertension Denies: Congestive Heart Failure, DVT, Myocardial Infarction, Hyperlipidema, Pulmonary Embolism Pulmonary Medical History: Denies: Asthma, Chronic Obstructive Pulmonary Disease (COPD), Sleep Apnea Neurological Medical History: Denies: Seizures Endocrine Medical History: Reports: Diabetes Mellitus Type 2 Denies: Diabetes Mellitus Type 1, Hyperthyroidism, Hypothyroidism GI Medical History: Reports: Gastroesophageal Reflux Disease Denies: Cirrhosis, Crohn's Disease, Hepatitis, Ulcerative Colitis Musculoskeltal Medical History: Reports: Arthritis - Rheumatoid arthritis on [employer] Psychiatric Medical History: Reports: Bipolar Disorder, Depression, Post Traumatic Stress Disorder Infectious Medical History: Reports: Clostridium Difficile Denies: Methicillin-Resistant Staph Aureus Past Surgical History Past Surgical History: Reports: Section, Cholecystectomy, Orthopedic Surgery - Rheumatic nodule removal Social History Smoking Status: Unknown if Ever Smoked Frequency of Alcohol Use: None Hx Recreational Drug Use: No Drugs: None Hx Prescription Drug Abuse: No Family History Family History: Arthritis, CVA, Hypertension, Other - MOTHER - RA, hepatitis, hypertension Parental Family History Reviewed: Yes - Father is a history of 2 strokes. Throat cancer. Mom from hepati Children Family History Reviewed: Yes Sibling(s) Family History Reviewed.: Yes Medication/Allergy Home Medications: Duloxetine HCl [Cymbalta] 60 mg PO DAILY 08/28/18 Allergies/Adverse Reactions: methyldopa [From Aldomet] Allergy (Mild, Verified 08/28/18 09:03) egg [Egg] Allergy (Verified 08/28/18 09:03) tramadol HCl [From Ultram] Allergy (Verified 08/28/18 09:03) clindamycin Adverse Reaction (Mild, Verified 08/28/18 09:03) C-Difficile reaction Review of Systems Constitutional: PRESENT: weight gain. ABSENT: chills, fever(s), headache(s), weight loss Eyes: ABSENT: visual disturbances Ears: ABSENT: hearing changes Cardiovascular: PRESENT: dyspnea on exertion, edema, orthropnea, palpitations Respiratory: PRESENT: dyspnea Gastrointestinal: PRESENT: nausea Genitourinary: ABSENT: dysuria, hematuria Musculoskeletal: PRESENT: other - Chronic joint pain Neurological: PRESENT: other - Gait not assessed. Alert and oriented x4. Cooperative. No obvious defects. Cranial nerves II through XII grossly intact. Endocrine: PRESENT: menstrual abnormalities - Last menstrual. One year ago. Possible hot sweats. ABSENT: cold intolerance, heat intolerance, polydipsia, polyuria Physical Exam Vital Signs: Temp Pulse Resp BP Pulse Ox 98.1 F 110 H 19 124/86 H 95 08/28/18 14:47 08/28/18 09:18 08/28/18 14:41 08/28/18 14:41 08/28/18 14:41 Intake & Output 08/27/18 08/28/18 08/29/18 06:59 06:59 06:59 Intake Total 1 Output Total 1000 Balance -999 Weight 102.9 kg General appearance: PRESENT: no acute distress, cooperative, morbidly obese Head exam: PRESENT: atraumatic, normocephalic Eye exam: PRESENT: conjunctiva pink, EOMI, PERRLA. ABSENT: scleral icterus Ear exam: PRESENT: normal external ear exam Mouth exam: PRESENT: moist, tongue midline Teeth exam: PRESENT: poor dentation Respiratory exam: PRESENT: other - Possible rales bilateral lower lobes. Cardiovascular exam: PRESENT: RRR, +S1, +S2 Vascular exam: PRESENT: normal capillary refill GI/Abdominal exam: PRESENT: normal bowel sounds, soft. ABSENT: distended, guarding, mass, organolmegaly, rebound, tenderness Rectal exam: PRESENT: deferred Extremities exam: PRESENT: full ROM, other - Faint edema bilateral lower extremities Neurological exam: PRESENT: alert, awake, oriented to person, oriented to place, oriented to time, oriented to situation, CN II-XII grossly intact. ABSENT: motor sensory deficit Psychiatric exam: PRESENT: anxious Results Laboratory Results: 08/28/18 09:28 08/28/18 09:28 08/28/18 08/28/18 08/28/18 09:28 09:28 09:28 WBC 5.6 RBC 4.76 Hgb 14.6 Hct 42.1 MCV 89 MCH 30.8 MCHC 34.8 RDW 13.9 Plt Count 180 Seg Neutrophils % 59.2 Lymphocytes % 32.8 Monocytes % 5.3 Eosinophils % 1.9 Basophils % 0.8 Absolute Neutrophils 3.3 Absolute Lymphocytes 1.8 Absolute Monocytes 0.3 Absolute Eosinophils 0.1 Absolute Basophils 0.0 Sodium 138.9 Potassium 3.7 Chloride 104 Carbon Dioxide 24 Anion Gap 11 BUN 13 Creatinine 0.58 Est GFR ( Amer) > 60 Est GFR (Non-Af Amer) > 60 Glucose 241 H Calcium 8.9 Magnesium 1.5 L Total Bilirubin 0.7 AST 22 ALT 21 Alkaline Phosphatase 72 Total Protein 7.0 Albumin 3.7 08/28/18 08/28/18 08/28/18 09:28 09:28 09:28 Creatine Kinase 48 CK-MB (CK-2) 0.95 Troponin I 0.041 NT-Pro-B Natriuret Pep 642 H 08/28/18 13:24 Creatine Kinase CK-MB (CK-2) Troponin I 0.032 NT-Pro-B Natriuret Pep Impressions: Chest X-Ray 08/28/18 00:00 IMPRESSION: CHF versus viral/atypical infection. Difficult to determine. Clinical correlation is needed. Assessment & Plan - Diagnosis (1) Acute exacerbation of CHF (congestive heart failure) Qualifiers: Heart failure type: unspecified Qualified Code(s): I50.9 - Heart failure, unspecified Is this a current diagnosis for this admission?: Yes (2) Hypertension Qualifiers: Hypertension type: essential hypertension Is this a current diagnosis for this admission?: Yes (3) Noncompliance Is this a current diagnosis for this admission?: Yes (4) Obesity (BMI 30-39.9) Is this a current diagnosis for this admission?: Yes (5) Hypomagnesemia Is this a current diagnosis for this admission?: Yes (6) Diabetes Is this a current diagnosis for this admission?: Yes - Time Time Spent: 50 to 70 Minutes Critical Time spent with patient: 25-34 minutes Smoking Cessation Education: 3 to 10 minutes Medications reviewed and adjusted accordingly: Yes Anticipated discharge: Home - Inpatient Certification Based on my medical assessment, after consideration of the patient's comorbidities, presenting symptoms, or acuity I expect that the services needed warrant INPATIENT care.: Yes I certify that my determination is in accordance with my understanding of Medicare's requirements for reasonable and necessary INPATIENT services [42 CFR 412.3e].: Yes - Plan Summary Plan Summary: CRUZ/SOB -Tentative diagnosis of congestive heart failure. Pulmonary congestion on chest x-ray. Clinical exam has limited utility in assessing intravascular volume, but patient does seem to present with excessive volume. Echocardiogram ordered. BNP is not significantly elevated, however it can be falsely low in obese patients. Will continue with a third set of troponins, and evaluate for the need of an additional EKG. -Continue with supplemental oxygen -Lasix IV 20 mg every 8 hours -Cardiac diet. Dietary consult. -Monitor on telemetry. Could be episodes of atrial fibrillation. KRISTIAN -Strongly suspected. Needs sleep study. Diabetes -Reported diagnosis. Check A1c. HTN: -Continue with Lasix w/ hold parameters. Will evaluate for the need of beta blockers and JEFFRY/ARB Morbid obesity: BMI 37.8. -Check TSH and lipid profile. Dietary consult. Electrolyte abnormalities: Monitor with use of Lasix. Correct hypomagnesium w/IV mag 2 g x2. Start daily oral magnesium. Noncompliance: -We will ask urban planner to help with arrangements for affordable health care and medications if possible
[2018-08-28] MEDS ORDERED: FUROSEMIDE INJ/PF 40 MG/4 ML SDV IV SCH (17:00)
[2018-08-28] MEDS: MAGNESIUM SULFATE/D5W 1 GM/100 ML RTUPB IV SCH ×2 (17:49→21:51)
[2018-08-28] MEDS: INSULIN LISPRO 100 UNIT/ML 3 ML VIAL SUBCUT PRN ×2 (18:38→21:50)
[2018-08-28] MEDS ORDERED: NITROGLYCERIN 2% OINTMENT 1 GM PACKET TP ONE (21:15)
[2018-08-28] MEDS: FUROSEMIDE INJ/PF 40 MG/4 ML SDV IV SCH (21:50)
[2018-08-28] MEDS ORDERED: ACETAMINOPHEN 325 MG TABLET PO PRN (23:20)
[2018-08-28] MEDS ORDERED: IBUPROFEN 800 MG TABLET PO PRN (23:21)
[2018-08-29] MEDS: NITROGLYCERIN 2% OINTMENT 1 GM PACKET TP SCH ×4 (00:23→17:18)
--- NOTE | 2018-08-29 00:35 | RADIOLOGY REPORT (SQ) ---
EXAM DESCRIPTION: CT CHEST ANGIOGRAPHY WITHOUT THEN WITH IV CONTRAST COMPLETED DATE/TME: 08/28/2018 23:16 CLINICAL HISTORY: 43 years, Female, elevated d dimer COMPARISON: None. TECHNIQUE: 600 Images stored on PACS. All CT scanners at this facility use dose modulation, iterative reconstruction, and/or weight based dosing when appropriate to reduce radiation dose to as low as reasonably achievable (ALARA). Axial images were obtained with coronal and sagittal MIPS reconstructions. [facility]: Dose Right [facility]: CareDose [facility]: Dose Right [facility]: Teradose 4D [facility]: [employer] LIMITATIONS: None. FINDINGS: The mediastinal vasculature enhances normally. There is no intraluminal filling defect to suggest pulmonary most. Negative for thoracic aortic aneurysm or dissection. Nonenlarged mediastinal and hilar lymph nodes. Heart size at the upper limits of normal. Limited evaluation of the upper abdomen shows fatty infiltrative change to the liver. Postcholecystectomy changes. Osseous structures are grossly intact. No pneumothorax. 11 mm nodular density in the posterior right upper lobe. This minimally abuts the pleural surface. This has a predominantly solid appearance. Minor groundglass opacities in the lung bases suggesting minor pneumonitis. IMPRESSION: 11 mm nodular density in the posterior right upper lobe. Please refer to below Fleischner Society criteria for follow-up. Groundglass opacities suggesting minor pneumonitis. Fatty infiltrative change to the liver. 2017 Fleischner Society Recommendations for Single Solid Lung Nodule Follow-Up based on size (average of long- and short-axis diameters) <6 mm Low-Risk Patient: No routine follow-up <6 mm High-Risk Patient: Optional CT at 12 months 6-8 mm Low-Risk Patient: CT at 6-[address] at 18-24 months 6-8 mm High-Risk Patient: CT at 6-[address] at 18-24 months >8 mm Low-Risk Patient: Consider CT, PET/CT or tissue sampling at 3 months >8 mm High-Risk Patient: Same as for low-risk patient TECHNICAL DOCUMENTATION: Quality ID # [id number]: Final reports with documentation of one or more dose reduction techniques (e.g., Automated exposure control, adjustment of the mA and/or kV according to patient size, use of iterative reconstruction technique) copyright 2011 [employer]- All Rights Reserved
[2018-08-29 04:44] LABS: ABSOLUTE EOSINOPHILS # (AUTO) 0.1 10^3/uL (0.0-0.6); ABSOLUTE LYMPHOCYTES (AUTO) 2.5 10^3/uL (0.5-4.7); ABSOLUTE MONOCYTES (AUTO) 0.4 10^3/uL (0.1-1.4); ABSOLUTE NEUT (AUTO) 3.3 10^3/uL (1.7-8.2); BASOPHILS % (AUTO) 0.6 % (0-2); HEMATOCRIT 39.7 % (36.0-47.0); HEMOGLOBIN 13.8 g/dL (12.0-15.5); LYMPHOCYTES % (AUTO) 39.7 % (13-45); MEAN CORPUSCULAR HGB CONC 34.8 g/dL (32.0-36.0); MEAN CORPUSCULAR VOLUME 89 fl (80-97); MONOCYTES % (AUTO) 6.3 % (3-13); PLATELET COUNT 179 10^3/uL (150-450); RED BLOOD COUNT 4.45 10^6/uL (3.72-5.28); RED CELL DISTRIBUTION WIDTH 13.9 % (11.5-14.0); SEGMENTED NEUTROPHILS % (AUTO) 51.4 % (42-78); TOTAL CELLS COUNTED % (AUTO) 100 %; WHITE BLOOD COUNT 6.4 10^3/uL (4.0-10.5)
[2018-08-29 05:02] LABS: TRIGLYCERIDES 371 mg/dL (<150)
[2018-08-29 05:13] LABS: DIRECT LDL 106 mg/dL (<100)
[2018-08-29 05:18] LABS: VLDL CHOLESTEROL 74.2 mg/dL (10-31)
[2018-08-29] MEDS: FUROSEMIDE INJ/PF 40 MG/4 ML SDV IV SCH (05:32)
[2018-08-29] MEDS: INSULIN LISPRO 100 UNIT/ML 3 ML VIAL SUBCUT PRN ×3 (08:48→17:11)
--- NOTE | 2018-08-29 08:48 | EKG REPORT ---
SEVERITY:- ABNORMAL ECG - SINUS RHYTHM PROBABLE LEFT ATRIAL ABNORMALITY NONSPECIFIC T ABNORMALITIES, ANT-LAT LEADS : Confirmed by: Marianna Angelo 29-Aug-2018 08:48:13
[2018-08-29] MEDS ORDERED: DOCUSATE SODIUM 100 MG CAPSULE PO SCH (10:00)
[2018-08-29] MEDS ORDERED: ASPIRIN 81 MG TABLET, ENT COATED PO SCH (10:00)
[2018-08-29] MEDS ORDERED: ENOXAPARIN SODIUM INJ 40 MG/0.4 ML DISP.SYRIN SUBCUT SCH (10:00)
[2018-08-29] MEDS ORDERED: LISINOPRIL 5 MG TABLET PO ONE ×2 (11:00→15:00)
[2018-08-29] MEDS ORDERED: FUROSEMIDE 40 MG TABLET PO SCH (11:00)
[2018-08-29 16:33] VITALS: BP 132/85
[2018-08-29] MEDS ORDERED: MAGNESIUM OXIDE 400 MG TABLET PO SCH (18:00)
--- NOTE | 2018-08-29 18:50 | PDOC DISCHARGE SUMMARY ---
General - Admit/Disc Date/PCP Admission Date/Primary Care Provider: 08/28/18 12:39 Discharge Date: 08/29/18 - Discharge Diagnosis (1) Acute exacerbation of CHF (congestive heart failure) Is this a current diagnosis for this admission?: Yes (2) Hypertension Is this a current diagnosis for this admission?: Yes (3) Noncompliance Is this a current diagnosis for this admission?: Yes (4) Obesity (BMI 30-39.9) Is this a current diagnosis for this admission?: Yes (5) Diabetes Is this a current diagnosis for this admission?: Yes - Additional Information Discharge Diet: Cardiac Discharge Activity: Activity As Tolerated Prescriptions: Furosemide [Lasix 40 mg Tablet] 40 mg PO DAILY #30 tablet Gabapentin [Neurontin 300 mg Capsule] 300 mg PO Q8 #90 cap Lisinopril [Prinivil 5 mg Tablet] 5 mg PO DAILY #30 tablet Metformin HCl [Metformin ER Gastric] 500 mg PO BID #60 [id number] Home Medications: Duloxetine HCl [Cymbalta] 60 mg PO DAILY 08/28/18 Aspirin [Ecotrin 81 mg EC Tablet] 81 mg PO DAILY #0 tabec 08/29/18 Furosemide [Lasix 40 mg Tablet] 40 mg PO DAILY #30 tablet 08/29/18 Gabapentin [Neurontin 300 mg Capsule] 300 mg PO Q8 #90 cap 08/29/18 Lisinopril [Prinivil 5 mg Tablet] 5 mg PO DAILY #30 tablet 08/29/18 Magnesium Oxide [Mag-Ox 400 mg Tablet] 800 mg PO BID tablet 08/29/18 Metformin HCl [Metformin ER Gastric] 500 mg PO BID #60 [id number] 08/29/18 History of Present Illness Patient complains of: Shortness of breath History of Present Illness: BLU TERAN is a 43 year old female with a past medical history of hypertension, PTSD, bipolar, diabetes, rheumatoid arthritis, osteoarthritis, C. difficile, morbid obesity (BMI 37.8), former smoker with a 45 pack/year history. Quit smoking fall 2016. Ms. Teran reports ongoing shortness of breath over the past few days that became acutely worse last night around midnight she was trying to sleep. She reports her heart was racing, and possible palpitations. She endorses symptoms of 3 pillow orthopnea, possible PND, and symptoms consistent with KRISTIAN. She reports sleeping best when upright in the recliner. Over the last 24 hours she has had intermittent periods of hot sweats. But she also reports having these hot sweats over the preceding few months. She reports her last menstrual period was 1 year ago. She believes she is going through menopause. She reported some chest discomfort and/or tightness in the center of her chest. She had dinner last night at [facility]. She has had dyspnea on exertion over the past few months. She also reports intermittent nausea over the past few weeks. During the same time. She also reports taking Aleve PM to help with sleep. Patient reports being noncompliant with medications due to financial difficulties. She last had an echocardiogram 2 years ago, and reported not having heart failure at that time. She was previously on lisinopril for hypertension, but has been off of it for some time now. She also reports of being off metformin for an extended period of time now. She was also on Enbrel for rheumatoid arthritis up until the past 1-2 months. Currently she is resting comfortably in her room on 2-3 L of oxygen. She speaks in full sentences. She does not appear to be in any distress. She reports her breathing is much improved since arriving at the hospital. She denies current chest pain, shortness of breath, fever, chills, sick contacts. Hospital Course Hospital Course: CRUZ/shortness of breath -Resolved on admission. -Suspect this was related to uncontrolled hypertension and fluid overload. -Patient could have underlying congestive heart failure and needs to be evaluated outpatient by cardiology. Pulmonary congestion on chest x-ray. Troponins were negative x3. EKG was negative x3. -She was admitted to the floor. -Shortness of breath resolved with Lasix IV 20 mg every 8 hours -Cardiac diet. Dietary consult. -Monitor on telemetry. Could be episodes of atrial fibrillation. -Echocardiogram was not obtained due to patient's request for discharge in the echoes have not been resulted all week. She plans on following up with outpatient cardiology of her choice and having an echo that way. Pulmonary nodule -Right upper lobe. 11 mm. Incidental finding on CT abdomen and chest. Recommendations per criteria is for patient to follow-up CT or PET scan in 3 months. She has been advised to follow-up with pulmonology. KRISTIAN -Strongly suspected. Needs sleep study. Diabetes -Reported diagnosis. Uncontrolled. She was given a prescription for metformin on discharge HTN: -Continue with Lasix w/ hold parameters. This should hopefully help keep the fluid off. She has been instructed to eat a low-salt diet. Will defer the need of beta blockers and JEFFRY/ARB Morbid obesity: BMI 37.8. -Normal TSH and relatively normal lipid profile. Defer to PCP diet changes advised. Electrolyte abnormalities: Monitor with use of Lasix. Correct hypomagnesium w/IV mag 2 g x2. Start daily oral magnesium. Noncompliance: -We will ask production planner to help with arrangements for affordable health care and medications if possible. She was provided prescriptions for lisinopril, metformin, gabapentin, Lasix discharge. She will also advised to take a daily aspirin and magnesium. Physical Exam Vital Signs: Temp Pulse Resp BP Pulse Ox 98.6 F 97 18 132/85 H 95 08/29/18 16:05 08/29/18 16:05 08/29/18 16:05 08/29/18 16:05 08/29/18 16:05 Pulse Oximeter Continuous Start: 08/28/18 15:23 Freq: RTQ4 Status: Active Protocol: Document 08/29/18 16:00 [facility] (Rec: 08/29/18 16:33 [facility] [id number]) Pulse Oximetry Assessment Oxygen Saturation (92-100) 96 Oxygen Delivery Method Room Air Fraction of Inspired Oxygen (FIO2) 21 Equipment Usage Equipment in Use Continuous SpO2 Machine # 1 Intake & Output 08/28/18 08/29/18 08/30/18 06:59 06:59 06:59 Intake Total 507 Output Total 3600 Balance -3093 Weight 103.2 kg General appearance: PRESENT: no acute distress, cooperative, well-developed, well-nourished Head exam: PRESENT: atraumatic, normocephalic Eye exam: PRESENT: conjunctiva pink, EOMI, PERRLA. ABSENT: scleral icterus Ear exam: PRESENT: normal external ear exam Mouth exam: PRESENT: moist, tongue midline Teeth exam: PRESENT: poor dentation Respiratory exam: PRESENT: clear to auscultation miya. ABSENT: rales, rhonchi, wheezes Cardiovascular exam: PRESENT: RRR. ABSENT: diastolic murmur, rubs, systolic murmur Pulses: PRESENT: normal dorsalis pedis pul GI/Abdominal exam: PRESENT: normal bowel sounds, soft. ABSENT: distended, guarding, mass, organolmegaly, rebound, tenderness Rectal exam: PRESENT: deferred Extremities exam: PRESENT: other - No edema bilaterally. Musculoskeletal exam: PRESENT: full ROM, normal inspection Neurological exam: PRESENT: alert, awake, oriented to person, oriented to place, oriented to time, oriented to situation, CN II-XII grossly intact. ABSENT: motor sensory deficit Psychiatric exam: PRESENT: appropriate affect, normal mood. ABSENT: homicidal ideation, suicidal ideation Results Laboratory Results: 08/29/18 03:50 08/28/18 09:28 08/29/18 08/29/18 08/29/18 03:50 03:50 03:50 WBC 6.4 RBC 4.45 Hgb 13.8 Hct 39.7 MCV 89 MCH 31.0 MCHC 34.8 RDW 13.9 Plt Count 179 Seg Neutrophils % 51.4 Lymphocytes % 39.7 Monocytes % 6.3 Eosinophils % 2.0 Basophils % 0.6 Absolute Neutrophils 3.3 Absolute Lymphocytes 2.5 Absolute Monocytes 0.4 Absolute Eosinophils 0.1 Absolute Basophils 0.0 Magnesium Triglycerides 371 H Cholesterol 194.70 LDL Cholesterol Direct 106 H VLDL Cholesterol 74.2 H HDL Cholesterol 27 L TSH 2.67 08/29/18 03:50 WBC RBC Hgb Hct MCV MCH MCHC RDW Plt Count Seg Neutrophils % Lymphocytes % Monocytes % Eosinophils % Basophils % Absolute Neutrophils Absolute Lymphocytes Absolute Monocytes Absolute Eosinophils Absolute Basophils Magnesium 2.0 Triglycerides Cholesterol LDL Cholesterol Direct VLDL Cholesterol HDL Cholesterol TSH 08/28/18 08/28/18 08/28/18 09:28 09:28 09:28 Creatine Kinase 48 CK-MB (CK-2) 0.95 Troponin I 0.041 NT-Pro-B Natriuret Pep 642 H 08/28/18 08/28/18 13:24 19:19 Creatine Kinase CK-MB (CK-2) Troponin I 0.032 0.038 NT-Pro-B Natriuret Pep Impressions: Chest X-Ray 08/28/18 00:00 IMPRESSION: CHF versus viral/atypical infection. Difficult to determine. Clinical correlation is needed. Chest/Abdomen CTA 08/28/18 23:16 IMPRESSION: 11 mm nodular density in the posterior right upper lobe. Please refer to below Fleischner Society criteria for follow-up. Groundglass opacities suggesting minor pneumonitis. Fatty infiltrative change to the liver. 2017 Fleischner Society Recommendations for Single Solid Lung Nodule Follow-Up based on size (average of long- and short-axis diameters) <6 mm Low-Risk Patient: No routine follow-up <6 mm High-Risk Patient: Optional CT at 12 months 6-8 mm Low-Risk Patient: CT at 6-[address] at 18-24 months 6-8 mm High-Risk Patient: CT at 6-[address] at 18-24 months >8 mm Low-Risk Patient: Consider CT, PET/CT or tissue sampling at 3 months >8 mm High-Risk Patient: Same as for low-risk patient TECHNICAL DOCUMENTATION: Quality ID # [id number]: Final reports with documentation of one or more dose reduction techniques (e.g., Automated exposure control, adjustment of the mA and/or kV according to patient size, use of iterative reconstruction technique) copyright 2011 [employer]- All Rights Reserved Qualifiers - * PATIENT BEING DISCHARGED WITH ANY OF THE FOLLOWING DIAGNOSIS: No
--- NOTE | 2018-08-29 23:42 | EKG REPORT ---
SEVERITY:- ABNORMAL ECG - SINUS RHYTHM PROBABLE LEFT ATRIAL ABNORMALITY ABNORMAL T, CONSIDER ISCHEMIA, LATERAL LEADS PROLONGED QT INTERVAL : Confirmed by: Marianna Angelo 29-Aug-2018 23:41:18
== END 2018-08-29 19:00 | disposition home or self-care (01) | DRG 293 ==
LOC: ER 09:01 → EH 12:39 → 3N 15:32
PROVIDERS: ADMIT Internal Medicine; ATTEND Internal Medicine
DX: I11.0 Hypertensive heart disease with heart failure (principal); I50.9 Heart failure, unspecified; E11.9 Type 2 diabetes mellitus without complications; Z91.19 Patient's noncompliance with other medical treatment and regimen; R91.1 Solitary pulmonary nodule; G47.33 Obstructive sleep apnea (adult) (pediatric); E83.42 Hypomagnesemia; K21.9 Gastro-esophageal reflux disease without esophagitis; F43.10 Post-traumatic stress disorder, unspecified; F31.9 Bipolar disorder, unspecified; M06.9 Rheumatoid arthritis, unspecified; M19.90 Unspecified osteoarthritis, unspecified site; E66.01 Morbid (severe) obesity due to excess calories; Z68.37 Body mass index [BMI] 37.0-37.9, adult; Z87.891 Personal history of nicotine dependence; Z79.82 Long term (current) use of aspirin; Z79.84 Long term (current) use of oral hypoglycemic drugs; Z79.899 Other long term (current) drug therapy; Z90.49 Acquired absence of other specified parts of digestive tract; Z88.8 Allergy status to other drugs, medicaments and biological substances
CPT/HCPCS: 36415; 71046; 71275; 80053; 80061; 82550; 82553; 82962; 83036; 83735; 83880; 84443; 84484; 85025; 85379; 87086; 93005; 93010; 94762; 96374; 99291; J1650; J1815; J1940; J3475; J3490